=== PATIENT | male | born 1960 | race Caucasian/White ===

== ENCOUNTER 2019-05-15 19:57 | Inpatient (IN) ==
[2019-05-15 20:31] LABS: Basophils # (auto) 0.02 K/uL (0-0.2); Basophils % (auto) 0.3 %; Eosinophils # (auto) 0.14 K/uL (0-0.5); Hemoglobin 16.8 g/dL (14.0-18.0); Immature Granulocytes # (auto) 0.02 K/uL (0.00-0.02); Immature Granulocytes % (auto) 0.3 %; Lymphocytes % (auto) 47.9 %; Mean Corpuscular Hemoglobin 33.1 pg (25-34); Mean Corpuscular Hgb Conc 35.7 g/dL (32-36); Mean Corpuscular Volume 92.5 fL (80-100); Mean Platelet Volume 10.6 fL (7.4-10.4); Monocytes # (auto) 0.31 K/uL (0.11-0.59); Monocytes % (auto) 4.5 %; Platelet Count 189 K/uL (130-400); RDW Coefficient of Variation 12.3 % (11.5-14.5); RDW Standard Deviation 41.8 fL (36.4-46.3); Red Blood Count 5.08 M/uL (4.7-6.1); White Blood Count 6.89 K/uL (4.8-10.8)
--- NOTE | 2019-05-15 21:18 | XRay Report ---
XR chest 1V portable HISTORY: Atypical Chest Pain COMPARISON: None. FINDINGS: There are low lung volumes. No focal lung consolidations to suggest pneumonia. The heart is mildly enlarged. There are poststernotomy changes. There is mild central pulmonary vascular congesti on without overt edema. No pleural effusions. No pneumothorax. IMPRESSION: Cardiomegaly with mild central pulmonary vascular congestion. ACT 112: Negative or not required by law. Electronically signed by: Italo Bedoya M.D. 05/15/2019 9:17 PM
[2019-05-15 21:32] LABS: Alanine Aminotransferase 63 U/L (12-78); Albumin Globulin Ratio 0.7 (0.9-2); Albumin Level 3.8 gm/dl (3.4-5.0); Alkaline Phosphatase 58 U/L (45-117); Bilirubin,Total 0.3 mg/dl (0.2-1); Blood Urea Nitrogen 10 mg/dl (7-18); Carbon Dioxide 19 mmol/L (21-32); Chloride 103 mmol/L (98-107); Est GFR (African American) 111.6; Est GFR (Non-African American) 96.3; Globulin 5.1 gm/dl (2.5-4.0); Glucose 245 mg/dl (70-99); Lipase 126 U/L (73-393); Sodium 135 mmol/L (136-145); Total Protein 8.9 gm/dl (6.4-8.2); Troponin I < 0.015 ng/ml (0-0.045)
[2019-05-15 21:38] LABS: D Dimer 200 ug/L FEU (0-500); Partial Thromboplastin Ratio 0.9; Partial Thromboplastin Time 23.1 Seconds (21.0-31.0); Prothrombin Time 10.4 Seconds (9.0-12.0)
[2019-05-15] MEDS ORDERED: ALUMINUM/MAGNESIUM SUSP 30 ML UDC PO STA (22:12)
[2019-05-15 22:22] LABS: Appearance Urine Clear (Clear); Bilirubin Urine Negative (Negative); Blood Urine Negative (Negative); Color Urine Yellow; Glucose Urine UA 3+ (Negative); Ketones Urine Negative (Negative); Leukocyte Esterase Urine Negative (Negative); Nitrite Urine Negative (Negative); Protein Urine Negative (Negative); Urobilinogen Urine Negative (Negative)
[2019-05-15] MEDS ORDERED: OPTIRAY 320 125ml IV PRN (22:54)
[2019-05-16] MEDS ORDERED: METOPROLOL TARTRATE 25 MG TAB PO STA (01:06)
[2019-05-16 01:11] LABS: BUN Creatinine Ratio 13.3 (10-20); Blood Urea Nitrogen 7 mg/dl (7-18); Calcium 6.2 mg/dl (8.5-10.1); Carbon Dioxide 19 mmol/L (21-32); Chloride 113 mmol/L (98-107); Est GFR (African American) 137.5; Est GFR (Non-African American) 118.6; Glucose 187 mg/dl (70-99); Potassium 3.1 mmol/L (3.5-5.1); Sodium 143 mmol/L (136-145)
[2019-05-16 01:23] LABS: Magnesium 1.6 mg/dl (1.8-2.4); Thyroid Stimulating Hormone 0.752 uIu/ml (0.300-4.500); Troponin I < 0.015 ng/ml (0-0.045)
[2019-05-16] MEDS ORDERED: MAGNESIUM SULFATE / D5W 1 GM/100 ML BAG IV ONE (01:39)
[2019-05-16] MEDS ORDERED: POTASSIUM CHLORIDE 10 MEQ TABCR PO STA (01:39)
--- NOTE | 2019-05-16 01:45 | Emergency Department Note ---
Entered by Nupur Pena acting as a scribe for History of Present Illness General Chief complaint: Chest Pain Stated complaint: CHEST PAIN Time Seen by Provider: 05/15/19 20:09 Source: patient and family History of Present Illness Onset (ago): hour(s) less than 1 Location: chest Severity: similar to prior episodes Pain Consistency: + constant Quality: + aching Relieved By: + none Exacerbated By: + none Associated symptoms: + denies other symptoms (denies sore throat) and + headaches; no diaphoresis and no fever/chills Treatments prior to arrival: none The patient is a 58 year old male who presents to the Emergency Room with complaints of chest pain and shortness of breath that started today. The patient states that he passed out and fell on the kitchen floor. He reports that he was drinking beer today, and had about 8 glasses. He complains of chest pain. The patient has a cardiac history. He called his daughter and told her that he needed to go to the hospital. He notes that his symptoms felt similar to his past heart attack. He denies diaphoresis, fever, and sore throat. The patient is not on any blood thinners. He has a history of diabetes and has been taking his medication. He has a history of a triple bypass, as well as cardiac stent melissa cement. The patient also complains of general aches and headache. The patient states that he does not drink every day. He currently does not have any chest pain, and was feeling okay prior to the episode. Home Medications Home Medications Medication Instructions Recorded Confirmed Type aspirin [Aspir-81] 81 mg PO QAM 05/15/19 05/15/19 History lisinopril-hydrochlorothiazide 1 tab PO QAM 05/15/19 05/15/19 History metformin 500 mg PO BID 05/15/19 05/15/19 History metoprolol tartrate [Lopressor] 75 mg PO BID 05/15/19 05/15/19 History simvastatin 40 mg PO QAM 05/15/19 05/15/19 History Allergies Allergy/AdvReac Type Severity Reaction Status Date / Time No Known Allergies Allergy Verified 05/15/19 20:28 Past Med/Surg History Medical History Diabetes Surgical History Hx of heart artery stent S/P triple vessel bypass Social History Feels Safe at Home: Yes Smoking Status: Former smoker Review of Systems See HPI for pertinent positives & negatives. and A total of 10 systems reviewed and were otherwise negative Physical Exam Vital Signs Vital Signs - 24 hr 05/15/19 20:06 05/15/19 20:08 05/15/19 20:11 Temperature 37.0 C Temperature Source Oral Pulse Rate 112 H 109 H 110 H Pulse Rate [Finger] 109 H Pulse Rate from SpO2 Sensor 112 H 108 H Respiratory Rate 23 14 19 Respiratory Effort / Characteristics Respiratory Depth Blood Pressure 176/111 H 176/111 H Blood Pressure [Right Arm] 176/111 H Blood Pressure Mean 127 132 Blood Pressure Mean [Right Arm] 132 Pulse Oximetry 95 95 95 Oxygen Delivery Method Nasal Cannula Nasal Cannula Nasal Cannula Oxygen Flow Rate 2 2 2 Sepsis Recent Fever Within 48 Hours No Sepsis New/Unexplained Change in Mental Status No Sepsis Action Taken by Nursing No Action Required 05/15/19 20:20 05/15/19 20:30 05/15/19 20:31 Temperature Temperature Source Pulse Rate 109 H 115 H 118 H Pulse Rate [Finger] Pulse Rate from SpO2 Sensor 110 H 109 H 119 H Respiratory Rate 26 H 22 21 Respiratory Effort / Characteristics Respiratory Depth Blood Pressure 121/87 Blood Pressure [Right Arm] Blood Pressure Mean 107 Blood Pressure Mean [Right Arm] Pulse Oximetry 91 94 Oxygen Delivery Method Nasal Cannula Nasal Cannula Nasal Cannula Oxygen Flow Rate 2 2 2 Sepsis Recent Fever Within 48 Hours Sepsis New/Unexplained Change in Mental Status Sepsis Action Taken by Nursing 05/15/19 20:40 05/15/19 20:50 05/15/19 21:00 Temperature Temperature Source Pulse Rate 112 H 107 H 114 H Pulse Rate [Finger] Pulse Rate from SpO2 Sensor 111 H 106 H Respiratory Rate 17 18 14 Respiratory Effort / Characteristics Respiratory Depth Blood Pressure Blood Pressure [Right Arm] Blood Pressure Mean Blood Pressure Mean [Right Arm] Pulse Oximetry 94 93 Oxygen Delivery Method Nasal Cannula Nasal Cannula Nasal Cannula Oxygen Flow Rate 2 2 2 Sepsis Recent Fever Within 48 Hours Sepsis New/Unexplained Change in Mental Status Sepsis Action Taken by Nursing 05/15/19 21:01 05/15/19 21:10 05/15/19 21:20 Temperature Temperature Source Pulse Rate 112 H 108 H 111 H Pulse Rate [Finger] Pulse Rate from SpO2 Sensor 113 H 106 H 110 H Respiratory Rate 22 21 21 Respiratory Effort / Characteristics Respiratory Depth Blood Pressure 116/73 Blood Pressure [Right Arm] Blood Pressure Mean 76 Blood Pressure Mean [Right Arm] Pulse Oximetry 94 95 94 Oxygen Delivery Method Nasal Cannula Nasal Cannula Nasal Cannula Oxygen Flow Rate 2 2 2 Sepsis Recent Fever Within 48 Hours Sepsis New/Unexplained Change in Mental Status Sepsis Action Taken by Nursing 05/15/19 21:21 05/15/19 21:22 05/15/19 21:30 Temperature Temperature Source Pulse Rate 113 H 108 H Pulse Rate [Finger] 103 H Pulse Rate from SpO2 Sensor 114 H 109 H Respiratory Rate 20 23 20 Respiratory Effort / Characteristics Non-Labored Respiratory Depth Normal Blood Pressure 126/77 Blood Pressure [Right Arm] 126/77 Blood Pressure Mean 100 Blood Pressure Mean [Right Arm] 93 Pulse Oximetry 94 93 93 Oxygen Delivery Method Nasal Cannula Nasal Cannula Nasal Cannula Oxygen Flow Rate 2 2 2 Sepsis Recent Fever Within 48 Hours Sepsis New/Unexplained Change in Mental Status Sepsis Action Taken by Nursing 05/15/19 21:40 05/15/19 21:50 05/15/19 22:00 Temperature Temperature Source Pulse Rate 109 H 102 H 103 H Pulse Rate [Finger] Pulse Rate from SpO2 Sensor 105 H 104 H 104 H Respiratory Rate 32 H 21 18 Respiratory Effort / Characteristics Respiratory Depth Blood Pressure Blood Pressure [Right Arm] Blood Pressure Mean Blood Pressure Mean [Right Arm] Pulse Oximetry 94 93 94 Oxygen Delivery Method Nasal Cannula Nasal Cannula Nasal Cannula Oxygen Flow Rate 2 2 2 Sepsis Recent Fever Within 48 Hours Sepsis New/Unexplained Change in Mental Status Sepsis Action Taken by Nursing 05/15/19 22:10 05/15/19 22:20 05/15/19 22:30 Temperature Temperature Source Pulse Rate Pulse Rate [Finger] Pulse Rate from SpO2 Sensor 112 H 98 H Respiratory Rate 23 20 23 Respiratory Effort / Characteristics Respiratory Depth Blood Pressure 164/150 H Blood Pressure [Right Arm] Blood Pressure Mean 151 Blood Pressure Mean [Right Arm] Pulse Oximetry 95 93 Oxygen Delivery Method Nasal Cannula Nasal Cannula Nasal Cannula Oxygen Flow Rate 2 2 2 Sepsis Recent Fever Within 48 Hours Sepsis New/Unexplained Change in Mental Status Sepsis Action Taken by Nursing 05/15/19 22:40 05/15/19 23:36 05/15/19 23:40 Temperature Temperature Source Pulse Rate Pulse Rate [Finger] Pulse Rate from SpO2 Sensor 93 H 95 H 90 Respiratory Rate 22 32 H Respiratory Effort / Characteristics Respiratory Depth Blood Pressure Blood Pressure [Right Arm] Blood Pressure Mean Blood Pressure Mean [Right Arm] Pulse Oximetry 95 92 Oxygen Delivery Method Nasal Cannula Nasal Cannula Nasal Cannula Oxygen Flow Rate 2 2 2 Sepsis Recent Fever Within 48 Hours Sepsis New/Unexplained Change in Mental Status Sepsis Action Taken by Nursing 05/15/19 23:45 05/15/19 23:50 05/16/19 00:00 Temperature Temperature Source Pulse Rate 105 H 102 H Pulse Rate [Finger] 101 H Pulse Rate from SpO2 Sensor 104 H 95 H Respiratory Rate 20 21 14 Respiratory Effort / Characteristics Respiratory Depth Blood Pressure Blood Pressure [Right Arm] Blood Pressure Mean Blood Pressure Mean [Right Arm] Pulse Oximetry 92 92 94 Oxygen Delivery Method Room Air Nasal Cannula Room Air Oxygen Flow Rate 2 Sepsis Recent Fever Within 48 Hours Sepsis New/Unexplained Change in Mental Status Sepsis Action Taken by Nursing 05/16/19 00:01 05/16/19 00:10 05/16/19 00:20 Temperature Temperature Source Pulse Rate 96 H 97 H 97 H Pulse Rate [Finger] Pulse Rate from SpO2 Sensor 97 H 103 H 97 H Respiratory Rate 17 21 24 Respiratory Effort / Characteristics Respiratory Depth Blood Pressure Blood Pressure [Right Arm] Blood Pressure Mean Blood Pressure Mean [Right Arm] Pulse Oximetry 92 91 91 Oxygen Delivery Method Room Air Room Air Room Air Oxygen Flow Rate Sepsis Recent Fever Within 48 Hours Sepsis New/Unexplained Change in Mental Status Sepsis Action Taken by Nursing 05/16/19 00:30 05/16/19 00:31 05/16/19 00:40 Temperature Temperature Source Pulse Rate 105 H 100 H 95 H Pulse Rate [Finger] Pulse Rate from SpO2 Sensor 95 H 99 H 96 H Respiratory Rate 18 23 25 H Respiratory Effort / Characteristics Respiratory Depth Blood Pressure 163/98 H Blood Pressure [Right Arm] Blood Pressure Mean 108 Blood Pressure Mean [Right Arm] Pulse Oximetry 91 91 91 Oxygen Delivery Method Room Air Room Air Room Air Oxygen Flow Rate Sepsis Recent Fever Within 48 Hours Sepsis New/Unexplained Change in Mental Status Sepsis Action Taken by Nursing 05/16/19 00:50 Temperature Temperature Source Pulse Rate 102 H Pulse Rate [Finger] Pulse Rate from SpO2 Sensor 104 H Respiratory Rate 22 Respiratory Effort / Characteristics Respiratory Depth Blood Pressure Blood Pressure [Right Arm] Blood Pressure Mean Blood Pressure Mean [Right Arm] Pulse Oximetry 93 Oxygen Delivery Method Room Air Oxygen Flow Rate Sepsis Recent Fever Within 48 Hours Sepsis New/Unexplained Change in Mental Status Sepsis Action Taken by Nursing General: Moderately intoxicated middle-aged male in no acute distress. Complains he does not feel well. HEENT: Normal cephalic atraumatic. Pupils are equal round and reactive to light. Extraocular movements are intact. Oropharynx is pink with moist mucous membranes. No swelling of the mouth lips or tongue. Neck: Supple with a midline trachea. No meningeal signs or stiffness, no JVD or bruits. No Stridor. Chest: Clear to auscultation bilaterally. No wheezes or rhonchi. No increased work of breathing. Heart: regular rate and rhythm. Abdomen: Soft nontender, nondistended without rebound guarding or rigidity. Extremities: No cyanosis clubbing or edema. No calf tenderness or asymmetry Spine/Back. Small abrasion to right posterior thoracic area. Non tender to palpation. No CVA tenderness Skin: Good turgor without rashes. Neurologic exam: Cranial nerves two through 12 are intact. Motor and sensation are intact and symmetrical throughout. Procedures Free Text Procedures Emergency department observation Family history: Cardiac disease This patient was observed in the emergency department using our heart pathway. This was done to further evaluate him from a cardiac standpoint. He was placed in observation at 2034 on 05/15/19 and was observed through 100 a.m. on 05/16/19. His EKGs appear unchanged from each other. His troponins were both negative. Despite this given his significant cardiac history it was deemed that he should be observed further in the hospital Course Course 2010: Past medical records reviewed. The patient was evaluated in room B02. A complete history and physical exam was performed. 2046: The patient complained of a twinge of chest pain that felt like a spasm. He is now having no pain, and repeat EKG shows no change. 2205: I rechecked on the patient. He has been having intermittent pain in his epigastric area. I ordered a chest abdominal CT for him. The patients blood alcohol is elevated, but the patient denies being intoxicated. 104: I rechecked on the patient, who seems to be doing better. Dr. Guaman has been paged for patient observation. 0125: I spoke to Dr. Guaman, [facility] hospitalist, who agreed to further evaluate the patient. The patient understands and is agreeable to this. Administered Medications Ioversol (Optiray 320 125ml) 125 ml IV ONCE PRN PRN Reason: Interaction Checking Stop: 05/19/19 22:53 Last Admin: 05/15/19 22:55 Dose: 120 ml Documented by: [id number] Discontinued Medications Al Hydrox/Mg Hydrox/Simethicone (Maalox) 30 ml PO NOW STA Stop: 05/15/19 22:13 Last Admin: 05/15/19 22:47 Dose: 30 ml Documented by: [id number] Metoprolol Tartrate (Lopressor) 25 mg PO NOW STA Stop: 05/16/19 01:07 Last Admin: 05/16/19 01:35 Dose: 25 mg Documented by: [id number] Medical Decision Making Differential Diagnosis Differential diagnosis includes: acute coronary syndrome, PE, arrhythmia, syncope, alcohol intoxication, electrolyte or metabolic abnormalities, among others were considered. Medical Records Attestation: I reviewed the patient's medical records. Home Medications Current Medication List: was personally reviewed by me Laboratory Data Attestation: I reviewed the patient's lab results. Result diagrams: 05/15/19 20:11 05/16/19 00:35 Lab Results 05/15/19 05/15/19 05/15/19 Range/Units 20:11 20:11 20:35 WBC 6.89 (4.8-10.8) K/uL RBC 5.08 (4.7-6.1) M/uL Hgb 16.8 (14.0-18.0) g/dL Hct 47.0 (42-52) % MCV 92.5 (80-100) fL MCH 33.1 (25-34) pg MCHC 35.7 (32-36) g/dL RDW Std Deviation 41.8 (36.4-46.3) fL RDW Coeff of Vanesa 12.3 (11.5-14.5) % Plt Count 189 (130-400) K/uL MPV 10.6 H (7.4-10.4) fL Immature Gran % (Auto) 0.3 % Neut % (Auto) 45.0 % Lymph % (Auto) 47.9 % Kimble % (Auto) 4.5 % Eos % (Auto) 2.0 % Baso % (Auto) 0.3 % Immature Gran # (Auto) 0.02 (0.00-0.02) K/uL Neut # (Auto) 3.10 (1.4-6.5) K/uL Lymph # (Auto) 3.30 (1.2-3.4) K/uL Kimble # (Auto) 0.31 (0.11-0.59) K/uL Eos # (Auto) 0.14 (0-0.5) K/uL Baso # (Auto) 0.02 (0-0.2) K/uL PT Cancelled INR Cancelled APTT Cancelled PTT Ratio Cancelled D-Dimer Cancelled Sodium 135 L (136-145) mmol/L Potassium (3.5-5.1) mmol/L Chloride 103 (98-107) mmol/L Carbon Dioxide 19 L (21-32) mmol/L Anion Gap 13.0 H (3-11) BUN 10 (7-18) mg/dl Creatinine 0.83 (0.6-1.4) mg/dl Est Cr Clr Drug Dosing 103.0 ml/min Est GFR ( Amer) 111.6 Est GFR (Non-Af Amer) 96.3 BUN/Creatinine Ratio 12.0 (10-20) Glucose 245 H (70-99) mg/dl Calcium 9.0 (8.5-10.1) mg/dl Magnesium (1.8-2.4) mg/dl Total Bilirubin 0.3 (0.2-1) mg/dl AST (15-37) U/L ALT 63 (12-78) U/L Alkaline Phosphatase 58 (45-117) U/L Troponin I < 0.015 (0-0.045) ng/ml Total Protein 8.9 H (6.4-8.2) gm/dl Albumin 3.8 (3.4-5.0) gm/dl Globulin 5.1 H (2.5-4.0) gm/dl Albumin/Globulin Ratio 0.7 L (0.9-2) Lipase 126 (73-393) U/L TSH (0.300-4.500) uIu/ml Urine Color Urine Appearance (Clear) Urine pH (4.5-7.5) Ur Specific [place] (1.000-1.030) Urine Protein (Negative) Urine Glucose (UA) (Negative) Urine Ketones (Negative) Urine Blood (Negative) Urine Nitrite (Negative) Urine Bilirubin (Negative) Urine Urobilinogen (Negative) Ur Leukocyte Esterase (Negative) Ethyl Alcohol mg/dL (0-3) mg/dl 05/15/19 05/15/19 05/15/19 Range/Units 20:35 21:15 22:15 WBC (4.8-10.8) K/uL RBC (4.7-6.1) M/uL Hgb (14.0-18.0) g/dL Hct (42-52) % MCV (80-100) fL MCH (25-34) pg MCHC (32-36) g/dL RDW Std Deviation (36.4-46.3) fL RDW Coeff of Vanesa (11.5-14.5) % Plt Count (130-400) K/uL MPV (7.4-10.4) fL Immature Gran % (Auto) % Neut % (Auto) % Lymph % (Auto) % Kimble % (Auto) % Eos % (Auto) % Baso % (Auto) % Immature Gran # (Auto) (0.00-0.02) K/uL Neut # (Auto) (1.4-6.5) K/uL Lymph # (Auto) (1.2-3.4) K/uL Kimble # (Auto) (0.11-0.59) K/uL Eos # (Auto) (0-0.5) K/uL Baso # (Auto) (0-0.2) K/uL PT 10.4 INR 1.0 APTT 23.1 PTT Ratio 0.9 D-Dimer 200 Sodium (136-145) mmol/L Potassium (3.5-5.1) mmol/L Chloride (98-107) mmol/L Carbon Dioxide (21-32) mmol/L Anion Gap (3-11) BUN (7-18) mg/dl Creatinine (0.6-1.4) mg/dl Est Cr Clr Drug Dosing ml/min Est GFR ( Amer) Est GFR (Non-Af Amer) BUN/Creatinine Ratio (10-20) Glucose (70-99) mg/dl Calcium (8.5-10.1) mg/dl Magnesium (1.8-2.4) mg/dl Total Bilirubin (0.2-1) mg/dl AST (15-37) U/L ALT (12-78) U/L Alkaline Phosphatase (45-117) U/L Troponin I (0-0.045) ng/ml Total Protein (6.4-8.2) gm/dl Albumin (3.4-5.0) gm/dl Globulin (2.5-4.0) gm/dl Albumin/Globulin Ratio (0.9-2) Lipase (73-393) U/L TSH (0.300-4.500) uIu/ml Urine Color Yellow Urine Appearance Clear (Clear) Urine pH 5.0 (4.5-7.5) Ur Specific [place] 1.010 (1.000-1.030) Urine Protein Negative (Negative) Urine Glucose (UA) 3+ H (Negative) Urine Ketones Negative (Negative) Urine Blood Negative (Negative) Urine Nitrite Negative (Negative) Urine Bilirubin Negative (Negative) Urine Urobilinogen Negative (Negative) Ur Leukocyte Esterase Negative (Negative) Ethyl Alcohol mg/dL 241.0 H (0-3) mg/dl 05/16/19 Range/Units 00:35 WBC (4.8-10.8) K/uL RBC (4.7-6.1) M/uL Hgb (14.0-18.0) g/dL Hct (42-52) % MCV (80-100) fL MCH (25-34) pg MCHC (32-36) g/dL RDW Std Deviation (36.4-46.3) fL RDW Coeff of Vanesa (11.5-14.5) % Plt Count (130-400) K/uL MPV (7.4-10.4) fL Immature Gran % (Auto) % Neut % (Auto) % Lymph % (Auto) % Kimble % (Auto) % Eos % (Auto) % Baso % (Auto) % Immature Gran # (Auto) (0.00-0.02) K/uL Neut # (Auto) (1.4-6.5) K/uL Lymph # (Auto) (1.2-3.4) K/uL Kimble # (Auto) (0.11-0.59) K/uL Eos # (Auto) (0-0.5) K/uL Baso # (Auto) (0-0.2) K/uL PT INR APTT PTT Ratio D-Dimer Sodium 143 D (136-145) mmol/L Potassium 3.1 L (3.5-5.1) mmol/L Chloride 113 H (98-107) mmol/L Carbon Dioxide 19 L (21-32) mmol/L Anion Gap 11.0 (3-11) BUN 7 (7-18) mg/dl Creatinine 0.50 L D (0.6-1.4) mg/dl Est Cr Clr Drug Dosing 171.0 ml/min Est GFR ( Amer) 137.5 Est GFR (Non-Af Amer) 118.6 BUN/Creatinine Ratio 13.3 (10-20) Glucose 187 H (70-99) mg/dl Calcium 6.2 L D (8.5-10.1) mg/dl Magnesium 1.6 L (1.8-2.4) mg/dl Total Bilirubin (0.2-1) mg/dl AST (15-37) U/L ALT (12-78) U/L Alkaline Phosphatase (45-117) U/L Troponin I < 0.015 (0-0.045) ng/ml Total Protein (6.4-8.2) gm/dl Albumin (3.4-5.0) gm/dl Globulin (2.5-4.0) gm/dl Albumin/Globulin Ratio (0.9-2) Lipase (73-393) U/L TSH 0.752 (0.300-4.500) uIu/ml Urine Color Urine Appearance (Clear) Urine pH (4.5-7.5) Ur Specific [place] (1.000-1.030) Urine Protein (Negative) Urine Glucose (UA) (Negative) Urine Ketones (Negative) Urine Blood (Negative) Urine Nitrite (Negative) Urine Bilirubin (Negative) Urine Urobilinogen (Negative) Ur Leukocyte Esterase (Negative) Ethyl Alcohol mg/dL (0-3) mg/dl Imaging Data Radiologist's Impression: Radiology results as stated below per my review and the radiologist's interpretation: XR chest 1V portable HISTORY: Atypical Chest Pain COMPARISON: None. FINDINGS: There are low lung volumes. No focal lung consolidations to suggest pneumonia. The heart is mildly enlarged. There are poststernotomy changes. There is mild central pulmonary vascular congestion without overt edema. No pleural effusions. No pneumothorax. IMPRESSION: Cardiomegaly with mild central pulmonary vascular congestion. ACT 112: Negative or not required by law. Electronically signed by: Italo Bedoya M.D. 05/15/2019 9:17 PM CTA ABDOMEN & PELVIS With Contrast Moderate atherosclerosis of the aorta and iliac arteries. No aortic aneurysm or dissection. Hepatic steatosis. Nonenhancing cyst in the mid right kidney is probably benign. No hydronephrosis or nephrolithiasis. Diverticulosis without diverticulitis. Normal appendix. No free air or free fluid. CTA CHEST No aortic aneurysm or dissection. Evaluation for pulmonary emboli in the distal branches are limited due to motion artifact and suboptimal opacification. Streak artifact also limits evaluation of the right upper lobe branches. No definite evidence of pulmonary emboli. Scattered subpleural nodules measuring up to 10 mm in the lingula are indeterminant. Recommend correlation previous studies and risk factors and consider follow-up. Mild curvilinear groundglass in the dependent portions of both lungs probably represents atelectasis. Mildly enlarged lymph nodes in the bilateral hilar regions are indeterminant. Status post sternotomy and CABG. Diffuse coronary artery calcifications. Radiologist: Bala Salcido MD ECG Data Attestation: I personally reviewed and interpreted this ECG as follows: Indication: + chest pain Rate (beats per minute): 114 Rhythm: + sinus tachycardia ECG Intervals/blocks: + Normal QT ECG ST segments: + T-wave inversions (Lateral); no ST depression and no ST elevation Additional Comments: 2nd EKG: Sinus tachycardia, rate of 108. Non-specific T wave abnormalities. Unchanged compared to EKG 1 Blood Pressure Blood Pressure Findings: Elevated blood pressure Blood Pressure Disposition: Referred to patients primary care provider MDM Narrative Continuous Cardiac Monitoring: An order was placed for continuous cardiac monitoring. The monitor shows a rate of 114 with sinu tachycardia This patient comes in as scribed above. He was placed on a director of cardiac rehabilitation in room B2. he is complaining of syncope at home. he says he just does not feel well. He is also had some chest pain and pain in his abdomen. He does have a significant cardiac history and has also been drinking tonight which makes him a little bit difficult evaluate. He was placed on a director of cardiac rehabilitation. he was found to have some sinus tachycardia he does have some T wave abnormalities. Unfortunately, I do not have the old EKGs here for comparison. He has no ST segment elevation. Extensive work-up was obtained. His initial troponin was negative. I did do a follow-up EKG and there is no change compared to the first. Chest x-ray was unremarkable. He does have some mild electrolyte abnormalities with a low potassium and magnesium. These were repleted with IV magnesium. He was also given p.o. potassium. I did do a CAT scan with a CTA of the chest and abdomen. There is no aortic dissection and there is no definite PE, he has a normal d-dimer as well. I think he likely has a PE and there is no acute intra-abdominal process. His blood alcohol did come back over 200. Alcohol intoxication is playing a factor here however he does have a significant cardiac history with multiple stents and bypass. Given that he had syncope, I do think he should be observed further in the hospital to further rule out cardiac events. He seems to doing much better. I did give him Maalox at one point and that seemed to help his chest pain better but he was still having some mild abdominal discomfort. Given his drinking this could be more related to a GI issue such as esophagitis or ulcers. He is not been vomiting and has had no blood in his stool. I have consulted Dr. Garzon to see him in the ER for further treatment and evaluation. Impression & Plan Syncope, Chest pain, Alcohol intoxication, Acute epigastric pain, Hypokalemia, Hypomagnesemia Discharge Plan Visit Data Chief Complaint: Chest Pain Stated Complaint: CHEST PAIN ED Provider: Miki Rico Discharge Problem: Syncope, Chest pain, Alcohol intoxication, Acute epigastric pain, Hypokalemia, Hypomagnesemia Forms Stand Alone Forms: My [facility] Prescriptions Prescriptions: No Action metformin 500 mg Tablet 500 mg PO BID RF: 0 aspirin [Aspir-81] 81 mg Tablet,Delayed Release (Dr/Ec) 81 mg PO QAM RF: 0 simvastatin 40 mg Tablet 40 mg PO QAM RF: 0 metoprolol tartrate [Lopressor] 50 mg Tablet 75 mg PO BID RF: 0 lisinopril-hydrochlorothiazide 20-25 mg Tablet 1 tab PO QAM RF: 0 Discharge Problem: Syncope Qualifiers: Syncope type: unspecified Qualified Code(s): R55 - Syncope and collapse Chest pain Qualifiers: Chest pain type: unspecified Qualified Code(s): R07.9 - Chest pain, unspecified Alcohol intoxication Qualifiers: Complication of substance-induced condition: uncomplicated Qualified Code(s): F10.920 - Alcohol use, unspecified with intoxication, uncomplicated The scribe's documentation has been prepared under my direction and personally reviewed by me in its entirety. I confirm that the note above accurately reflects all work, treatment, procedures, and medical decision making performed by me.
[2019-05-16] MEDS ORDERED: NITROGLYCERIN SL 0.4 MG/TAB TAB SL STA (01:52)
[2019-05-16] MEDS ORDERED: MoRPHine SULFATE 2 MG/ML CARP IV STA (01:53)
[2019-05-16] MEDS ORDERED: INSULIN GLARGINE SOLOSTAR 100 UNITS/ML 3 ML PEN SC STA ×2 (01:54→05:18)
--- NOTE | 2019-05-16 02:09 | History & Physical Report ---
Date of Service May 16, 2019 Assessment & Plan (1) Chest pain: Possibly from uncontrolled HTN Rule out ACS hx CAD status post CABG status post stent hyperlipidemia on statin Rx, recent lipid profile drawn outpatient (serum cholesterol 187, triglycerides 407, HDL 23, LDL 99) DM 2 on oral medications, suboptimal control as of recent outpatient hemoglobin A1c of 9.7 April, Hypokalemia secondary to home diuretic Rx past tobacco abuse PCU Titrate home BP meds Continue home aspirin for secondary CAD prevention TTE, Cardiology consult RE chest pain Basal insulin, ISS BG goal [id number], carb count coverage, Diabetic education Replace electrolytes, hold home diuretic for now DVT prophylaxis per Lovenox subcu Full code History of Present Illness Chief Complaint: Passed out , chest pain Primary Care Provider: Roman Hooker MD History obtained from patient, family, and records. Medical history significant for CAD status post CABG status post stent, hypertension, hyperlipidemia, DM 2 on oral medications, past tobacco abuse. Patient has not seen a inspector clip on sunglasses for more than 10 years because he did not like his [employer] specialist. Intermittent chest pain, about weekly symptoms, usually with exertion, usually relieved with rest for some time now. SBP 130s on last recheck at PCPs office a few days ago. Some stress over the last few months from worrying about patient's sister's breast cancer recurrence. Patient not feeling well yesterday although appetite okay. Drinking alcohol yesterday about not habitual and heavy as per patient/family. He called his daughter a few hours ago feeling like he was given a pass out. Sinus headache symptoms as per patient. Patient found by daughter unconscious but arousable. Patient woke up with sharp substernal pain as if somebody was standing on his chest similar to his first heart attack. Some improvement with nitroglycerin administration at the ER. 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 Allergies Allergy/AdvReac Type Severity Reaction Status Date / Time No Known Allergies Allergy Verified 05/15/19 20:28 Home Medications Home Medications Medication Instructions Recorded Confirmed Type aspirin [Aspir-81] 81 mg PO QAM 05/15/19 05/15/19 History lisinopril-hydrochlorothiazide 1 tab PO QAM 05/15/19 05/15/19 History metformin 500 mg PO BID 05/15/19 05/15/19 History metoprolol tartrate [Lopressor] 75 mg PO BID 05/15/19 05/15/19 History simvastatin 40 mg PO QAM 05/15/19 05/15/19 History Past Med/Surg History Medical History Diabetes Surgical History Hx of heart artery stent S/P triple vessel bypass Social History Preferred Language: Montserratian Communication Ability: Effective Audio Director Required: No Beliefs That Will Affect Care: None Current Living Situation: Spouse Other Information That Helps Us Care for You: No Feels Safe at Home: Yes Safety Concerns: Feels Safe At This Time Smoking Status: Never smoker Do You Dip or Chew Tobacco: No ; Second Hand Exposure: No ; Tobacco Cessation Education Requested by Patient: No Hx Alcohol Use: Yes Alcohol type: beer Hx Substance Use: No Review of Systems Review of Systems: As per HPI, all 10 systems reviewed, all other ROS negative Physical Exam Physical Exam: GENERAL: Comfortable, pleasant, obese, alcoholic fetor, no respiratory distress SKIN: Normal color, warm HEENT: Partial alopecia, bespectacled, pink palpebral conjunctivae, no ptosis, dry buccal mucosa NECK : Supple, short neck, no tenderness CHEST : CTA, no tenderness HEART : Tachycardic, no obvious murmurs ABDOMEN: Some distention, nontender EXTREMITIES : No LE swelling/tenderness, no other conspicuous deformities noted NEUROLOGIC : Coherent, no facial asymmetry, no other gross focality Results & Data Vital Signs (Past 12 Hours) Vital Signs Temp Pulse Pulse Resp BP BP Pulse Ox 05/16/19 00:50 102 H 22 93 05/16/19 00:40 95 H 25 H 91 05/16/19 00:31 100 H 23 163/98 H 91 05/16/19 00:30 105 H 18 91 05/16/19 00:20 97 H 24 91 05/16/19 00:10 97 H 21 91 05/16/19 00:01 96 H 17 92 05/16/19 00:00 102 H 14 94 05/15/19 23:50 105 H 21 92 05/15/19 23:45 101 H 20 92 05/15/19 23:40 32 H 05/15/19 23:36 92 05/15/19 22:40 22 95 05/15/19 22:30 23 164/150 H 93 05/15/19 22:20 20 05/15/19 22:10 23 95 05/15/19 22:00 103 H 18 94 05/15/19 21:50 102 H 21 93 05/15/19 21:40 109 H 32 H 94 05/15/19 21:30 108 H 20 93 05/15/19 21:22 113 H 23 126/77 93 05/15/19 21:21 103 H 20 126/77 94 05/15/19 21:20 111 H 21 94 05/15/19 21:10 108 H 21 95 05/15/19 21:01 112 H 22 116/73 94 05/15/19 21:00 114 H 14 05/15/19 20:50 107 H 18 93 05/15/19 20:40 112 H 17 94 05/15/19 20:31 118 H 21 121/87 94 05/15/19 20:30 115 H 22 05/15/19 20:20 109 H 26 H 91 05/15/19 20:11 110 H 19 95 05/15/19 20:08 37.0 C 109 H 109 H 14 176/111 H 176/111 H 95 05/15/19 20:06 112 H 23 176/111 H 95 Laboratory Results Laboratory Results WBC 6.89 K/uL (4.8-10.8) 05/15/19 20:11 RBC 5.08 M/uL (4.7-6.1) 05/15/19 20:11 Hgb 16.8 g/dL (14.0-18.0) 05/15/19 20:11 Hct 47.0 % (42-52) 05/15/19 20:11 MCV 92.5 fL (80-100) 05/15/19 20:11 MCH 33.1 pg (25-34) 05/15/19 20:11 MCHC 35.7 g/dL (32-36) 05/15/19 20:11 RDW Std Deviation 41.8 fL (36.4-46.3) 05/15/19 20:11 RDW Coeff of Vanesa 12.3 % (11.5-14.5) 05/15/19 20:11 Plt Count 189 K/uL (130-400) 05/15/19 20:11 MPV 10.6 fL (7.4-10.4) H 05/15/19 20:11 Immature Gran % (Auto) 0.3 % 05/15/19 20:11 Neut % (Auto) 45.0 % 05/15/19 20:11 Lymph % (Auto) 47.9 % 05/15/19 20:11 Dawson % (Auto) 4.5 % 05/15/19 20:11 Eos % (Auto) 2.0 % 05/15/19 20:11 Baso % (Auto) 0.3 % 05/15/19 20:11 Immature Gran # (Auto) 0.02 K/uL (0.00-0.02) 05/15/19 20:11 Neut # (Auto) 3.10 K/uL (1.4-6.5) 05/15/19 20:11 Lymph # (Auto) 3.30 K/uL (1.2-3.4) 05/15/19 20:11 Dawson # (Auto) 0.31 K/uL (0.11-0.59) 05/15/19 20:11 Eos # (Auto) 0.14 K/uL (0-0.5) 05/15/19 20:11 Baso # (Auto) 0.02 K/uL (0-0.2) 05/15/19 20:11 PT 10.4 Seconds (9.0-12.0) 05/15/19 21:15 INR 1.0 (0.9-1.1) 05/15/19 21:15 APTT 23.1 Seconds (21.0-31.0) 05/15/19 21:15 PTT Ratio 0.9 05/15/19 21:15 D-Dimer 200 ug/L FEU (0-500) 05/15/19 21:15 Sodium 143 mmol/L (136-145) D 05/16/19 00:35 Potassium 3.1 mmol/L (3.5-5.1) L 05/16/19 00:35 Chloride 113 mmol/L (98-107) H 05/16/19 00:35 Carbon Dioxide 19 mmol/L (21-32) L 05/16/19 00:35 Anion Gap 11.0 (3-11) 05/16/19 00:35 BUN 7 mg/dl (7-18) 05/16/19 00:35 Creatinine 0.50 mg/dl (0.6-1.4) L D 05/16/19 00:35 Est Cr Clr Drug Dosing 171.0 ml/min 05/16/19 00:35 Est GFR ( Amer) 137.5 05/16/19 00:35 Est GFR (Non-Af Amer) 118.6 05/16/19 00:35 BUN/Creatinine Ratio 13.3 (10-20) 05/16/19 00:35 Glucose 187 mg/dl (70-99) H 05/16/19 00:35 Calcium 6.2 mg/dl (8.5-10.1) L D 05/16/19 00:35 Magnesium 1.6 mg/dl (1.8-2.4) L 05/16/19 00:35 Total Bilirubin 0.3 mg/dl (0.2-1) 05/15/19 20:35 AST U/L (15-37) 05/15/19 20:35 ALT 63 U/L (12-78) 05/15/19 20:35 Alkaline Phosphatase 58 U/L (45-117) 05/15/19 20:35 Troponin I < 0.015 ng/ml (0-0.045) 05/16/19 00:35 Total Protein 8.9 gm/dl (6.4-8.2) H 05/15/19 20:35 Albumin 3.8 gm/dl (3.4-5.0) 05/15/19 20:35 Globulin 5.1 gm/dl (2.5-4.0) H 05/15/19 20:35 Albumin/Globulin Ratio 0.7 (0.9-2) L 05/15/19 20:35 Lipase 126 U/L (73-393) 05/15/19 20:35 TSH 0.752 uIu/ml (0.300-4.500) 05/16/19 00:35 Urine Color Yellow 05/15/19 22:15 Urine Appearance Clear (Clear) 05/15/19 22:15 Urine pH 5.0 (4.5-7.5) 05/15/19 22:15 Ur Specific Walker 1.010 (1.000-1.030) 05/15/19 22:15 Urine Protein Negative (Negative) 05/15/19 22:15 Urine Glucose (UA) 3+ (Negative) H 05/15/19 22:15 Urine Ketones Negative (Negative) 05/15/19 22:15 Urine Blood Negative (Negative) 05/15/19 22:15 Urine Nitrite Negative (Negative) 05/15/19 22:15 Urine Bilirubin Negative (Negative) 05/15/19 22:15 Urine Urobilinogen Negative (Negative) 05/15/19 22:15 Ur Leukocyte Esterase Negative (Negative) 05/15/19 22:15 Ethyl Alcohol mg/dL 241.0 mg/dl (0-3) H 05/15/19 20:[address] chest initial read no aortic aneurysm or dissection. No definite evidence of pulmonary emboli. Scattered subpleural nodules. Status post CABG. Diffuse coronary artery calcifications. CT abdomen pelvis initial read moderate atherosclerosis of the aorta and iliac arteries. No aortic aneurysm or dissection. Hepatic steatosis. Nonenhancing cyst mid right kidney. Diverticulosis. No appendicitis. EKG as per my interpretation : Rate 115, sinus tachycardia, RAD, ST depression anterolateral leads (1) Chest pain Chest pain type: unspecified Qualified Code(s): R07.9 - Chest pain, unspecified
[2019-05-16 02:22] LABS: Albumin Level 2.6 gm/dl (3.4-5.0)
[2019-05-16] MEDS ORDERED: PROMETHAZINE 12.5 MG/50.5 ML BAG IV STA (02:25)
[2019-05-16] MEDS ORDERED: CALCIUM GLUCONATE 10% 10 ML VIAL IV STA (02:46)
[2019-05-16] MEDS ORDERED: CALCIUM GLUCONATE 10% 3,000 MG in SODIUM CHLORIDE 0.9% 50 ML IV STA (02:49)
[2019-05-16] MEDS ORDERED: METOPROLOL TARTRATE 1 MG/ML VIAL IV STA (02:53)
[2019-05-16] MEDS ORDERED: METOPROLOL TARTRATE 50 MG TAB PO STA (03:17)
[2019-05-16] MEDS ORDERED: POTASSIUM CHLORIDE 40 MEQ in SODIUM CHLORIDE 0.9% 1000ML 1,000 ML IV SCH (04:10)
[2019-05-16] MEDS ORDERED: GLUCAGON FOR INJ 1 MG VIAL SQ PRN (04:10)
[2019-05-16] MEDS ORDERED: DEXTROSE 50% 50 ML SYRINGE IV PRN (04:10)
[2019-05-16] MEDS ORDERED: LORazepam 0.5 MG/1 ML VIAL IV PRN (04:10)
[2019-05-16] MEDS ORDERED: GLUCOSE 10 TABS/TUBE PO PRN (04:10)
[2019-05-16] MEDS ORDERED: MoRPHine SULFATE 4 MG/ML 1 ML CARP\\VIAL IV PRN (04:10)
[2019-05-16] MEDS ORDERED: CARBOHYDRATES FOR HYPOGLYCEMIA PO PRN (04:10)
[2019-05-16] MEDS ORDERED: ACETAMINOPHEN 325 MG TAB PO PRN ×2 (04:10→10:56)
[2019-05-16] MEDS ORDERED: OXYCODONE HCL IR 5 MG TAB (IMMEDIATE RELEASE) PO PRN (04:10)
[2019-05-16] MEDS ORDERED: GLUCOSE 40% GEL 15 GM TUBE PO PRN (04:10)
[2019-05-16] MEDS: POTASSIUM CHLORIDE / WTR 10 MEQ/100 ML PLCT IV SCH ×4 (04:41→07:37)
[2019-05-16] MEDS: INSULIN ASPART 100 UNITS/ML 3 ML PEN SC SCH ×5 (05:00→20:31)
[2019-05-16 05:59] LABS: Basophils # (auto) 0.02 K/uL (0-0.2); Basophils % (auto) 0.3 %; Eosinophils # (auto) 0.08 K/uL (0-0.5); Eosinophils % (auto) 1.1 %; Hematocrit (blood only) 44.8 % (42-52); Hemoglobin 15.6 g/dL (14.0-18.0); Immature Granulocytes # (auto) 0.03 K/uL (0.00-0.02); Immature Granulocytes % (auto) 0.4 %; Lymphocytes # (auto) 2.17 K/uL (1.2-3.4); Lymphocytes % (auto) 29.4 %; Mean Corpuscular Hemoglobin 32.3 pg (25-34); Mean Corpuscular Hgb Conc 34.8 g/dL (32-36); Mean Corpuscular Volume 92.8 fL (80-100); Mean Platelet Volume 10.6 fL (7.4-10.4); Monocytes % (auto) 5.4 %; Neutrophils # (auto) 4.69 K/uL (1.4-6.5); Neutrophils % (auto) 63.4 %; Platelet Count 178 K/uL (130-400); RDW Coefficient of Variation 12.7 % (11.5-14.5); RDW Standard Deviation 42.9 fL (36.4-46.3); Red Blood Count 4.83 M/uL (4.7-6.1); White Blood Count 7.39 K/uL (4.8-10.8)
[2019-05-16 06:10] LABS: Partial Thromboplastin Ratio 0.8; Partial Thromboplastin Time 22.5 Seconds (21.0-31.0)
[2019-05-16 06:36] LABS: BUN Creatinine Ratio 11.6 (10-20); Blood Urea Nitrogen 9 mg/dl (7-18); Calcium 9.4 mg/dl (8.5-10.1); Carbon Dioxide 23 mmol/L (21-32); Chloride 101 mmol/L (98-107); Est GFR (African American) 115.7; Est GFR (Non-African American) 99.9; Glucose 216 mg/dl (70-99); Magnesium 2.2 mg/dl (1.8-2.4); Potassium 4.9 mmol/L (3.5-5.1); Sodium 132 mmol/L (136-145)
[2019-05-16 06:46] LABS: Troponin I < 0.015 ng/ml (0-0.045)
--- NOTE | 2019-05-16 06:58 | CT Scan Report ---
CT SCAN OF THE BRAIN WITHOUT IV CONTRAST CLINICAL HISTORY: Syncope. Headache. COMPARISON STUDY: No priors. TECHNIQUE: Unenhanced axial CT scan of the brain is performed from the vertex to the skull base. A d ose lowering technique was utilized adhering to the principles of ALARA. CT DOSE: 614.27 mGy.cm FINDINGS: Brain parenchyma: The brain parenchyma is normal in appearance. There is no hemorrhage, mass effect, or evidence of acute territorial ischemia by CT criteria. Agosto-white matter differentiation is preser alfred. No extra-axial fluid collection is seen. Ventricles, sulci, cisterns: Normal in configuration. Intracranial vasculature: There is atherosclerotic calcification of the cavernous carotid and vertebr al arteries. Calvarium: Unremarkable. Sinuses and mastoids: The visualized paranasal sinuses are clear. The mastoid air cells are well pneu matized. Orbits: The bony orbits are grossly intact. IMPRESSION: No acute intracranial abnormality. ACT 112: Negative or not required by law. Electronically signed by: Edson Caba M.D. 05/16/2019 6:57 AM
--- NOTE | 2019-05-16 07:33 | CT Scan Report ---
CT ANGIOGRAM OF THE CHEST COMBO; CT ANGIOGRAM OF THE ABDOMEN AND PELVIS CLINICAL HISTORY: Atypical chest pain. Generalized abdominal pain. COMPARISON STUDY: Chest x-ray dated 05/15/2019. TECHNIQUE: Following the IV administration of 120 cc of Optiray 320, CT angiogram of the chest, abdom en, and pelvis was performed from the thoracic inlet to the proximal femora. Images are reviewed in t he axial, sagittal, and coronal planes. 3-D MIPS images are created and assessed. IV contrast was adm inistered without complication. A dose lowering technique was utilized adhering to the principles of ALARA. CT DOSE: 2144.02 mGy.cm FINDINGS: CHEST: Thyroid: Imaged portions of the thyroid gland are normal in size and attenuation. Thoracic aorta: No intramural hematoma is seen on the unenhanced series. There is atherosclerotic steve cification of the thoracic aorta, which is normal in caliber and demonstrates standard 3-vessel arch anatomy. No dissection is seen. The arch vessels are widely patent. Pulmonary vasculature: The pulmonary trunk is normal in caliber. There are no filling defects identif ied in the main, lobar, or segmental pulmonary arteries to indicate pulmonary embolus. Heart: The patient is status post midline sternotomy. The heart is normal in size and without pericar dial effusion. The coronary arteries are densely calcified. Lungs and pleural spaces: Evaluation of the lung parenchyma is modestly degraded by motion artifact. No airspace consolidation or pleural effusion is identified. There are scattered calcified granulomas . There are numerous (greater than 10 pulmonary and pleural-based nodules scattered throughout both l ungs. The largest nodule is pleural-based seen in the left lower lobe on image #126 and measures up t o 9 mm. Additional sales service representative nodules are seen in the lingula on image #118, the right lower lobe on image #148, and the right middle lobe on image #158. The trachea and central airways are clear. Mediastinum: There are scattered subcentimeter mediastinal lymph nodes. These are not pathologically enlarged by size criteria. Jesenia: There is bilateral hilar adenopathy. Hilar lymph nodes measure up to 1.6 cm in short axis. Axillae: There is no axillary lymphadenopathy. Bony thorax: No destructive bony lesions are identified. ABDOMEN AND PELVIS: Liver: The contrast-enhanced liver is enlarged, measuring 19.9 cm in length. The liver demonstrates d iffusely diminished attenuation consistent with hepatic steatosis. Fatty sparing is noted adjacent to gallbladder fossa. There is no intrahepatic biliary ductal dilatation. The main portal veins appear patent. Gallbladder: Unremarkable. Spleen: Normal in size and attenuation noting heterogeneous arterial phase enhancement. Pancreas: Unremarkable. Adrenal glands: Unremarkable. Kidneys: The contrast enhanced kidneys are normal in size and without hydronephrosis. The kidneys enh ance symmetrically. There is a 1.3 cm cyst seen on the right. Abdominal aorta and iliac arteries: The abdominal aorta is normal in course and caliber noting modera te to advanced atherosclerotic calcification. No aneurysm or dissection is seen. The iliac arteries a re widely patent bilaterally. Major branches of the abdominal aorta: The celiac trunk, superior mesenteric, and inferior mesenteric arteries are widely patent. Hepatic arterial anatomy is conventional. The splenic artery is patent. The renal arteries are patent bilaterally. A small accessory renal artery is noted on the left. Stomach and bowel: A small hiatal hernia is noted. The duodenum is normal in configuration. There is moderate to advanced colonic diverticulosis without CT evidence of acute diverticulitis. No bowel obs truction is seen. The appendix is well-visualized and normal. Peritoneum: There is no intraperitoneal free air or abdominal ascites. There is a fat-containing umbi lical hernia. Lymphadenopathy: None. Pelvic viscera: The bladder, prostate, and seminal vesicles are normal as imaged. Skeletal structures: No destructive bony lesions are seen. IMPRESSION: 1. There is no aneurysm or dissection seen involving the thoracic or abdominal aorta. 2. There is no airspace consolidation or pleural effusion. 3. Unremarkable CT angiogram of the major branches of the abdominal aorta. 4. There is nonspecific bilateral hilar adenopathy. 5. There are numerous (at least 10) subcentimeter pulmonary and pleural-based nodules as above. These measure up to 9 mm. Correlation with any prior chest CT scans is recommended to assess for stability . If no prior studies are available these nodules can be followed as per the Fleischner criteria deta iled below. 6. Hepatomegaly and hepatic steatosis. 7. Moderate to advanced colonic diverticulosis without CT evidence of acute diverticulitis. 8. Additional findings as above. Please refer to below summary of Fleischner criteria recommendations for follow-up of incidental CT n odules Greer [place], Guidelines for management of small pulmonary nodules detected on CT scans: A sta tement from the Fleischner Society, Radiology 237: [phone].) SOLID NODULES Solitary nodule size: <6 mm * low risk patients: no follow-up needed * high risk patients: optional CT at 12 months Solitary nodule size: 6-8 mm * low risk patients: follow-up at 6-12 months, then consider further follow-up at 18-24 months * high risk patients: initial follow-up CT at 6-12 months and then at 18-24 months if no change Solitary nodule size: >8 mm * either low or high risk patients - consider follow-up CT at 3 months, and/or CT-PET, and/or biopsy Multiple nodules size: <6 mm * low risk patients: no routine follow-up * high risk patients: optional CT at 12 months Multiple nodules size: 6-8 mm * low risk patients: follow-up at 3-6 months, then consider further follow-up at 18-24 months * high risk patients: follow-up at 3-6 months, then at 18-24 months if no change Multiple nodules size: >8 mm * low risk patients: follow-up at 3-6 months, then consider further follow-up at 18-24 months * high risk patients: follow-up at 3-6 months, then at 18-24 months if no change Note: newly detected indeterminate nodule in persons 35 years of age or older. * low risk patients: minimal or absent history of smoking and/or other known risk factors * high risk patients: history of smoking or of other known risk factors (e.g. first degree relative with lung cancer, or exposure to asbestos, radon, uranium) * if a nodule up to 8 mm is partly solid or is ground glass further follow-up is required after 24 m onths to exclude possible slow growing adenocarcinoma (JIE) SUBSOLID NODULES Solitary pure ground-glass nodule * nodule size <6 mm - no CT follow-up required * nodule size >=6 mm - follow-up CT at 6-12 months, then every 2 years until 5 years Solitary part-solid nodule * nodule size <6 mm - no CT follow-up required * nodule size >=6 mm - follow-up CT at 3-6 months. If unchanged, and solid component remains <6 mm, then annual follow-up for 5 years Multiple subsolid nodules * nodule size <6 mm - follow-up CT at 3-6 months, consider further follow-up at 2 and 4 years if sta ble * nodule size >=6 mm - follow-up CT at 3-6 months, subsequent management based on the most suspiciou s nodule(s) ACT 112: Negative or not required by law. Electronically signed by: Edson Caba M.D. 05/16/2019 7:32 AM
[2019-05-16] MEDS: lisinopriL 20 MG TAB PO SCH (07:37)
[2019-05-16] MEDS: METOPROLOL TARTRATE 25 MG TAB PO SCH ×2 (07:37→20:27)
[2019-05-16] MEDS: SIMVASTATIN 40 MG TAB PO SCH (07:37)
[2019-05-16] MEDS: ASPIRIN 81 MG ECTAB PO SCH (07:37)
[2019-05-16] MEDS: ENOXAPARIN INJ 40 MG/0.4 ML SYR SQ SCH (07:38)
--- NOTE | 2019-05-16 09:40 | Communication Note ---
Date of Service: May 16, 2019 The patient has had multiple previous heart catheterizations both in [place] as well as [place]. He had coronary artery bypass surgery in [place] and he states several stenting procedures. I do not have those records available to me however, the patient states that he had 3 bypasses at the time of surgery and one was an artery graft. I have explained the risk, benefit, and intent of the cardiac catheterization and potential for additional coronary stents to the patient. Because of the potential for a VOGEL graft he will have a transfemoral approach completed. He is willing to proceed.
[2019-05-16] MEDS ORDERED: SODIUM CHLORIDE 0.9% 1000ML 1,000 ML IV SCH (09:45)
--- NOTE | 2019-05-16 10:09 | Hospitalist Progress Note ---
Date of Service May 16, 2019 Assessment & Plan (1) Chest pain: CHEST PAIN, ACUTE CORONARY SYNDROME RULED OUT hx CAD status post CABG status post stent Troponins negative The patient has an occluded right coronary artery in the proximal and mid segment where previous coronary stent was placed. The saphenous vein graft to the right coronary artery is occluded. The [place] LAD is occluded at its origin. The [place] left circumflex artery is patent. There is a sequential vein graft from the diagonal from the LAD across to the mid LAD which is patent. There is also an JOSE graft from the left to the LAD which is patent. LV function is relatively preserved with hypokinesis of the inferior and inferior basilar myocardium. Per cardiology service recommendations: We will proceed with medical therapy for his coronary artery disease and at this time would recommend PRN sublingual nitroglycerin. Continue usual cardiac medications Patient establish with [facility] cardiology clinic at [facility] [place], clinic to call patient SYNCOPE In the setting of alcohol intoxication We will need outpatient nurse special, to be set up by [facility] cardiology clinic in 1 week No driving, not advised to work until cardiology follow-up in 1 week Hyperlipidemia on statin Rx, recent lipid profile drawn outpatient (serum cholesterol 187, triglycerides 407, HDL 23, LDL 99) Continue statin, continue follow-up as an outpatient DM 2 on oral medications, suboptimal control as of recent outpatient hemoglobin A1c of 9.7 April, Continue usual regimen, close follow-up with outpatient PCP Hypokalemia secondary to home diuretic Rx Potassium 3.1 on admission, replaced Potassium 20 mics p.o. daily ordered Disposition Discharge to home Follow-up with PCP in 1 week Establish with [facility] cardiology clinic at [facility] in 1 week, will need nurse special placement Admission and Anticipated Discharge Date Admission Date: May 16, 2019 Subjective Follow-up for syncope, chest pain Status post cardiac catheterization yesterday Tolerated procedure well Seen resting in bed, sitting up, in good spirits, comfortable States he feels much better overall, back to baseline Denies chest pain since admission No dizziness, lightheadedness, near syncope episodes Ambulating with no problems No shortness of breath, palpitations Denies other symptoms States he is ready noted to be discharged today Review of Systems Review of Systems: All systems reviewed & are unremarkable except as noted in HPI & below Physical Exam Physical Exam: General- oriented x 3, not in distress, speaks in sentences with no effort or accessory muscle use Head- atraumatic Eyes- PERRL, EOMI, anicteric ENT- oropharynx clear Neck- supple, no JVD, no adenopathy, no thyromegaly; carotids +2/2, no bruits appreciated Lungs- clear to auscultation bilaterally, no rales/wheezes Heart- normal rate, regular rhythm; no murmur, no gallop, no rub appreciated Abdomen- normal bowel sounds, nondistended, soft, nontender, no masses or hepa tosplenomegaly Extremities- no pretibial edema, no calf tenderness; peripheral pulses intact Neuro- alert, oriented x 3; CN 2-12 grossly intact; motor 5/5 bilaterally;sensation 100% on all extremities; no other gross focal neurologic deficits Skin- warm & dry Results & Data ([facility]) Vital Signs (Past 12 Hours) Vital Signs Temp Pulse Pulse Resp BP BP Pulse Ox 05/16/19 07:42 36.9 C 64 16 147/86 H 94 05/16/19 04:10 37 C 79 20 151/96 H 93 05/16/19 02:50 90 05/16/19 02:40 90 05/16/19 02:31 154/99 H 91 05/16/19 02:30 92 05/16/19 02:21 94 05/16/19 02:00 101 H 23 94 05/16/19 01:50 107 H 20 96 05/16/19 01:40 111 H 20 96 05/16/19 01:31 105 H 27 H 95 05/16/19 01:30 106 H 16 162/116 H 96 05/16/19 01:20 112 H 24 95 05/16/19 01:10 93 H 23 05/16/19 01:01 99 H 25 H 148/71 H 90 05/16/19 01:00 98 H 21 05/16/19 00:50 102 H 22 93 05/16/19 00:40 95 H 25 H 91 05/16/19 00:31 100 H 23 163/98 H 91 05/16/19 00:30 105 H 18 91 05/16/19 00:20 97 H 24 91 05/16/19 00:10 97 H 21 91 05/16/19 00:01 96 H 17 92 05/16/19 00:00 102 H 14 94 05/15/19 23:50 105 H 21 92 05/15/19 23:45 101 H 20 92 05/15/19 23:40 32 H 05/15/19 23:36 92 05/15/19 22:40 22 95 05/15/19 22:30 23 164/150 H 93 05/15/19 22:20 20 05/15/19 22:10 23 95 Laboratory Results All noted and reviewed (1) Chest pain Chest pain type: unspecified Qualified Code(s): R07.9 - Chest pain, unspecified
--- NOTE | 2019-05-16 10:56 | Cardiac Catheterization ---
Date of Service May 16, 2019 Cardiac Cath Report Cardiac Cath Report Procedure: 1. Left heart catheterization 2. Coronary angiography 3. Left ventriculogram History: This is a 58-year-old male patient who presented with chest pain and nonspecific EKG changes. His cardiac markers elevated slightly and he was referred for cardiac catheterization. ACC data: Start time 10:14 AM End time 10:40 AM Opening aortic pressure 118/71 Left ventricular pressure 123/20 Closing aortic pressure 126/74 Sedation 1 mg intravenous Versed IV fluid 55 cc normal saline Contrast 120 cc Optiray Fluoroscopy time 3.4 minutes Radiation 1177 mGy Dap 118 mGy/m ACC score 9 Right dominant system Coronary angiography: Selective injections of the left coronary artery revealed the left main trunk to be patent. There is a small ramus branch from the left main trunk which is patent the left circumflex artery consists of a large distal first marginal branch and several smaller distal marginal branches. The left circumflex artery is widely patent. The LAD extends all the way to the apex of the heart. The LAD has minor luminal irregularities and is widely patent. The LAD gives off 2 medium size diagonal branches which are widely patent. Selective injections of the right coronary artery reveal it to be dominant. The right coronary artery is widely patent. Left ventriculogram: The left ventricle is of normal size with normal systolic function. The mitral valve is competent. The aortic root and ascending aorta have normal morphology and diameter. Summary: Widely patent coronary anatomy. Normal left ventricular function. Recommendations: Continued risk factor modification and follow-up with PCP.
[2019-05-16] MEDS ORDERED: MIDAZOLAM HCL 1 MG/ML 2ML VIAL ONE (10:58)
[2019-05-16] MEDS ORDERED: fentaNYL citrate 100 MCG/2 ML VIAL ONE (10:58)
--- NOTE | 2019-05-16 10:58 | Electrocardiogram Report ---
Test Reason : Blood Pressure : / mmHG Vent. Rate : 114 BPM Atrial Rate : 114 BPM P-R Int : 156 ms QRS Dur : 112 ms QT Int : 348 ms P-R-T Axes : 054 098 -43 degrees QTc Int : 479 ms Sinus tachycardia Rightward axis T wave abnormality, consider inferolateral ischemia Abnormal ECG No previous ECGs available Confirmed by Cristóbal Ellis ([id number]) on 05/16/2019 10:57:35 AM Referred By: REFERRED SELF Confirmed By:Cristóbal Ellis
[2019-05-16] MEDS: SODIUM CHLORIDE 0.9% 1000ML 1,000 ML IV SCH ×2 (12:15→23:00)
--- NOTE | 2019-05-16 12:15 | Cardiac Catheterization ---
Date of Service May 16, 2019 Cardiac Cath Report Cardiac Cath Report Procedure: 1. Left heart catheterization 2. Coronary angiography 3. Left ventriculogram 4. Aortography History: This is a 58-year-old male patient with a long history of coronary artery disease. Most of his cardiac treatment has been through [facility] as well as [facility]. Approximately 10 years ago he had coronary artery bypass surgery at [facility]. He also indicates that he had coronary stents placed at [facility]. He presented with new onset angina. Procedure summary: After informed consent was obtained the patient was taken to the cardiac catheterization lab where access was obtained using a retrograde cylinder technique from the right femoral artery. Preformed 5 Burkin[place] diagnostic catheters were used for the coronary angiograms. A 5 Burkin[place] pigtail catheter was utilized for the left ventriculogram and aortogram. Following the procedure patient had the arterial site closed with a minx device and was returned to his room in stable condition. ACC data: Start time 11:09 AM End time 11:40 AM Opening aortic pressure 149/89 Left ventricular pressure 148/29 Closing aortic pressure 131/88 Sedation 1 mg intravenous Versed IV fluid 53 cc normal saline Contrast 240 cc Optiray Fluoroscopy time 7.8 minutes Radiation 1939 mGy DAP 212 mGy/m Right dominant system AUC score 7 Coronary angiography: Selective injections of the left coronary artery reveal minor luminal irregu larities distally in the left main trunk. The LAD is occluded at its origin. The left circumflex artery a large first marginal branch that bifurcates into 2 equal branches. There are also moderate to large second and third marginal branches. The left circumflex system has luminal irregularities but is widely patent and supplies collaterals to the distal right coronary artery. Selective injections of the [place] right coronary artery revealed to be occluded proximally. There is evidence of a previous stent within the right coronary artery which is 100% occluded. The saphenous vein graft to the right coronary artery is occluded. There is a saphenous vein graft from the aorta sequentially from a large first diagonal to the LAD. There is competitive flow between the saphenous vein graft and the JOSE graft. The saphenous vein graft is widely patent. The VOGEL graft to the LAD is widely patent and supplies both antegrade and retrograde flow to the LAD across the saphenous vein graft into the diagonal branch. Aortogram: The aortogram was completed to help document the occluded saphenous vein graft to the right coronary artery and to exclude other possible unknown bypass grafts. Left ventriculogram: The left ventricle is of normal size. There is normal systolic function except for the basilar and inferior myocardium are hypokinetic. The estimated left ventricular ejection fraction is around 50%. The mitral valve is competent. The aortic root and ascending aorta have normal morphology. Summary: The patient has an occluded right coronary artery in the proximal and mid segment where previous coronary stent was placed. The saphenous vein graft to the right coronary artery is occluded. The [place] LAD is occluded at its origin. The [place] left circumflex artery is patent. There is a sequential vein graft from the diagonal from the LAD across to the mid LAD which is patent. There is also an JOSE graft from the left to the LAD which is patent. LV function is relatively preserved with hypokinesis of the inferior and inferior basilar myocardium. Recommendations: The recommendations are for continued medical management of the patient's coronary artery disease.
--- NOTE | 2019-05-16 13:19 | Cardiology Consultation ---
Date of Consultation May 16, 2019 Assessment & Plan (1) Chest pain: Given the fact that this is his anginal equivalent I do believe further evaluation is warranted at this time and the patient will undergo cardiac catheterization. 2D echocardiogram shows anterior/anterior septal wall motion abnormalities unclear if postop surgical changes versus LAD territory ischemia. This is a new finding compared to previous echocardiogram report he had from 2008. The patient is in agreement with this plan. Further recommendations to be made after cardiac catheterization. (2) Syncope: Unclear etiology. We will rule out ischemia as a possible cause with the above catheterization. No monitor the cardiac catheterization findings would like to remain on telemetry overnight and will require outpatient telemetry monitoring as well which we will arrange through [facility] prior to discharge. The patient would then like to follow-up with [facility] cardiology at our [place] office. History of Present Illness Reason for Consultation: Syncope and chest pain. Requesting Physician: Dr. Adams Attending Physician: Len Herring MD History of Present Illness It was my pleasure to see Mr. Rosa in consultation today May 16, 2019. 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 He is previously followed with Dr. Garcia tomorrow. He presented to [facility] on 05/15/2019 with complaints of a syncopal event followed by chest pain. Patient states he has been in his usual health as of late however yesterday he was feeling very lightheaded. He felt himself starting to pass out and he called to alert his daughter. He did lose consciousness and was found unresponsive by his daughter but was arousable. When he awoke he had significant chest pain. He described it as sharp/pressure sensation that is very similar to his anginal equivalent several years ago. It was associated with significant nausea and shortness of breath. He became c oncerned and came in the emergency department. In the ER he was given sublingual nitroglycerin with resolution of his chest discomfort. He has not had any further chest discomfort overnight and is now feeling well. Again, he states that this is the exact same presentation as he has had in the past prior to CABG and PCI's. Past cardiac history: 1. PCI to the LAD and RCA in 2004 2. In 2005 underwent CABG x3 at [facility] where he received a VOGEL to the LAD, vein graft to a diagonal and vein graft to the RCA. 3. Tobacco abuse 4. Hypertension 5. Dyslipidemia 6. Very poor diet 7. Diabetes Allergies Allergy/AdvReac Type Severity Reaction Status Date / Time No Known Allergies Allergy Verified 05/15/19 20:28 Home Medications Home Medications Medication Instructions Recorded Confirmed Type aspirin [Aspir-81] 81 mg PO QAM 05/15/19 05/15/19 History lisinopril-hydrochlorothiazide 1 tab PO QAM 05/15/19 05/15/19 History metformin 500 mg PO BID 05/15/19 05/15/19 History metoprolol tartrate [Lopressor] 75 mg PO BID 05/15/19 05/15/19 History simvastatin 40 mg PO QAM 05/15/19 05/15/19 History Patient History Medical History Diabetes Surgical History Hx of heart artery stent S/P triple vessel bypass Social History Preferred Language: Malawian Communication Ability: Effective Medical Accounts Receivable Specialist Required: No Beliefs That Will Affect Care: None Current Living Situation: Spouse Other Information That Helps Us Care for You: No Feels Safe at Home: Yes Safety Concerns: Feels Safe At This Time Smoking Status: Never smoker Do You Dip or Chew Tobacco: No ; Second Hand Exposure: No ; Tobacco Cessation Education Requested by Patient: No Hx Alcohol Use: Yes Alcohol type: beer Hx Substance Use: No Review of Systems Review of Systems: All systems reviewed & are unremarkable except as noted in HPI & below Physical Exam Physical Exam: General: Awake, alert and oriented x 3. No acute distress. HEENT: Normocephalic, atraumatic. Pupils equal, round and reactive to light and accommodation. Extraocular muscles are intact. Anicteric sclera. Moist mucous membranes. Neck: No JVD. No bruit. Cardiovascular: Regular. Positive S-4. Normal S-1 and S-2. No S-3. No murmurs or rubs. Pulmonary: Clear to auscultation B/L. No rales, rhonchi or wheezing Abdomen: Bowel sounds x 4, soft. No rebound, guarding or tenderness. No organomegaly. Extremities: No clubbing, cyanosis or edema. +2 pedal pulses bilaterally. Skin: Warm and dry. Results & Data ([facility]) Vital Signs (Past 12 Hours) Vital Signs Temp Pulse Pulse Resp BP BP Pulse Ox 05/16/19 13:00 60 20 137/88 91 05/16/19 12:45 65 18 128/87 93 05/16/19 12:30 58 L 22 119/71 92 05/16/19 12:15 36.5 C 60 20 135/91 91 05/16/19 12:05 62 18 100/78 92 05/16/19 11:50 60 18 156/93 H 91 05/16/19 10:47 59 L 16 128/80 96 05/16/19 07:42 36.9 C 64 16 147/86 H 94 05/16/19 04:10 37 C 79 20 151/96 H 93 05/16/19 02:50 90 05/16/19 02:40 90 05/16/19 02:31 154/99 H 91 05/16/19 02:30 92 05/16/19 02:21 94 05/16/19 02:00 101 H 23 94 05/16/19 01:50 107 H 20 96 05/16/19 01:40 111 H 20 96 05/16/19 01:31 105 H 27 H 95 05/16/19 01:30 106 H 16 162/116 H 96 05/16/19 01:20 112 H 24 95 (1) Chest pain Chest pain type: unspecified Qualified Code(s): R07.9 - Chest pain, un specified (2) Syncope Syncope type: unspecified Qualified Code(s): R55 - Syncope and collapse
--- NOTE | 2019-05-16 13:31 | Electrocardiogram Report ---
Test Reason : Blood Pressure : / mmHG Vent. Rate : 059 BPM Atrial Rate : 059 BPM P-R Int : 168 ms QRS Dur : 106 ms QT Int : 482 ms P-R-T Axes : 011 089 090 degrees QTc Int : 477 ms Sinus bradycardia Otherwise normal ECG When compared with ECG of 15-MAY-2019 20:08, Vent. rate has decreased BY [address] elevation now present in Inferior leads T wave inversion no longer evident in Inferior leads T wave inversion no longer evident in Lateral leads Confirmed by Cristóbal Ellis ([id number]) on 05/16/2019 1:30:57 PM Referred By: REFERRED SELF Confirmed By:Cristóbal Ellis
[2019-05-16] MEDS ORDERED: Nursing to Pharmacy Communication ONE (19:13)
[2019-05-16] MEDS: INSULIN GLARGINE SOLOSTAR 100 UNITS/ML 3 ML PEN SC SCH (20:31)
[2019-05-16] MEDS ORDERED: INSULIN GLARGINE SOLOSTAR 100 UNITS/ML 3 ML PEN SC SCH (21:00)
[2019-05-17] MEDS: INSULIN ASPART 100 UNITS/ML 3 ML PEN SC SCH ×2 (08:03→11:49)
[2019-05-17] MEDS: ENOXAPARIN INJ 40 MG/0.4 ML SYR SQ SCH (08:03)
[2019-05-17] MEDS: ASPIRIN 81 MG ECTAB PO SCH (08:04)
[2019-05-17] MEDS: lisinopriL 20 MG TAB PO SCH (08:04)
[2019-05-17] MEDS: INSULIN GLARGINE SOLOSTAR 100 UNITS/ML 3 ML PEN SC SCH (08:04)
[2019-05-17] MEDS: SIMVASTATIN 40 MG TAB PO SCH (08:04)
[2019-05-17] MEDS: METOPROLOL TARTRATE 25 MG TAB PO SCH (08:08)
--- NOTE | 2019-05-17 10:10 | Cardiology Progress Note ---
Date of Service May 17, 2019 Assessment & Plan (1) Syncope: (2) Chest pain: (3) Alcohol intoxication: (4) Diabetes: (5) CAD (coronary artery disease): (6) Hx of CABG: The patient by cardiac catheterization has significant ischemic heart disease however it is currently stable and should be managed medically. On the day of admission the patient consumed a large quantity of alcohol which may have contributed to his syncope. He has had no significant arrhythmias on telemetry and has been asymptomatic since admission. At this point I would recommend the patient be discharged home. We will arrange for an outpatient monitor for 7 days. 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 I offered him our clinic in [place] where we can see him in follow-up and he agreed. 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 I think he should remain off of work until we see him in the clinic with follow-up as well as review the telemetry from the monitor he will have as an outpatient. Subjective The patient had an uneventful night. Review of the telemetry indicates sinus rhythm with sinus bradycardia while sleeping. No other significant arrhythmias. In interviewing the patient today he was admitted after syncopal event however, he had just returned home after being out at the local establishment where he consumed at least 8 beers before returning home. After arriving there he was going to his kitchen to have something to eat and became queasy, called his daughter and the next thing he knew he was in the ambulance.He has had no additional dizziness or lightheadedness. No presyncope or syncope after admission. Review of Systems Review of Systems: All systems reviewed & are unremarkable except as noted in HPI & below Nothing additional to add. Physical Exam Physical Exam: General: no acute distress and stated age Head: normocephalic, no masses, lesions, tenderness or abnormalities Eyes: conjunctiva are pink and non-injected, sclera clear Neck: supple, no adenopathy, no bruits, normal jugular venous pulse, no hepatojugular reflux Chest: normal shape and normal respiratory effort Lungs: clear to auscultation and percussion Cardiac Exam: - regular rate & rhythm, no murmurs gallops or rubs - normal S1, normal S2 Pulses: 2(+) throughout Abdomen: abdomen soft, non-tender, no abnormal masses and no hepatosplenomegaly Musculoskeletal: no gait disturbance, no joint inflammation, no deforming arthritis Extremities: no edema and no cyanosis Neuro: grossly normal exam Results & Data Vital Signs (Past 12 Hours) Vital Signs Temp Pulse Resp BP Pulse Ox 05/17/19 08:00 36.6 C 83 20 124/74 92 05/17/19 03:51 36.6 C 54 L 18 110/62 93 05/17/19 00:26 36.5 C 48 L 99/58 L 96 Laboratory Results Laboratory Results - last 24 hr 05/16/19 05/16/19 05/16/19 10:37 16:09 20:24 POC Glucose 175 H 204 H 215 H 05/17/19 07:37 POC Glucose 189 H Medications Administered Current Inpatient Medications Acetaminophen (Tylenol) 650 mg PO Q4H PRN PRN Reason: Pain 1-3 or Fever Stop: 06/15/19 04:09 Aspirin (Ecotrin Ectab) 81 mg PO QAM [facility] Stop: 06/15/19 08:59 Last Admin: 05/17/19 08:04 Dose: 81 mg Documented by: Dextrose (Dextrose 50%) 25 - 50 ml IV UD PRN; Protocol PRN Reason: Hypoglycemia Protocol Stop: 06/15/19 04:09 Enoxaparin Sodium (Lovenox) 40 mg SQ QAM [facility] Stop: 06/15/19 08:59 Last Admin: 05/17/19 08:03 Dose: 40 mg Documented by: Glucagon (Glucagen) 1 mg SQ UD PRN; Protocol PRN Reason: Hypoglycemia Protocol Stop: 06/15/19 04:09 Glucose (Dex4 Glucose) 4 - 8 tabs PO UD PRN; Protocol PRN Reason: Hypoglycemia Protocol Stop: 06/15/19 04:09 Glucose (Glucose 40%) 15 - 30 gm PO UD PRN; Protocol PRN Reason: Hypoglycemia Protocol Stop: 06/15/19 04:09 Lorazepam (Ativan) 0.5 mg in 1 mls @ 1 mls/min IV Q4H PRN PRN Reason: Anxiety/Agitation Stop: 06/15/19 04:09 Insulin Aspart (Novolog Flexpen) 0 units SC ACHS [facility] Stop: 06/15/19 20:59 Last Admin: 05/17/19 08:03 Dose: 4 units Documented by: Insulin Glargine (Lantus Solostar Pen) 10 units SC BID [facility] Stop: 06/15/19 20:59 Last Admin: 05/17/19 08:04 Dose: 10 units Documented by: Lisinopril (Zestril) 20 mg PO QAM [facility] Stop: 06/15/19 08:59 Last Admin: 05/17/19 08:04 Dose: 20 mg Documented by: Metoprolol Tartrate (Lopressor) 75 mg PO BID [facility] Stop: 06/15/19 08:59 Last Admin: 05/17/19 08:08 Dose: 75 mg Documented by: Miscellaneous (Carbohydrates For Hypoglycemia) 15 - 30 gm PO UD PRN PRN Reason: Hypoglycemia Protocol Stop: 06/15/19 04:09 Morphine Sulfate (Morphine Sulfate) 4 mg IV Q4H PRN PRN Reason: Pain Stop: 05/30/19 04:09 Oxycodone HCl (Roxicodone Immediate Rel) 5 mg PO Q4H PRN PRN Reason: Pain Stop: 05/30/19 04:09 [facility]) [facility] Stop: 06/15/19 08:59 Last Admin: 05/17/19 08:04 Dose: 40 mg Documented by: (1) Syncope Syncope type: unspecified Qualified Code(s): R55 - Syncope and collapse (2) Chest pain Chest pain type: unspecified Qualified Code(s): R07.9 - Chest pain, unspecified (3) Alcohol intoxication Complication of substance-induced condition: uncomplicated Qualified Code(s): F10.920 - Alcohol use, unspecified with intoxication, uncomplicated
--- NOTE | 2019-05-17 10:59 | Electrocardiogram Report ---
Test Reason : Blood Pressure : / mmHG Vent. Rate : 050 BPM Atrial Rate : 050 BPM P-R Int : 204 ms QRS Dur : 100 ms QT Int : 530 ms P-R-T Axes : -03 083 077 degrees QTc Int : 483 ms Sinus bradycardia Prolonged QT Abnormal ECG When compared with ECG of 16-MAY-2019 13:02, No significant change was found Confirmed by Cristóbal Ellis ([id number]) on 05/17/2019 10:59:38 AM Referred By: REFERRED SELF Confirmed By:Cristóbal Ellis
--- NOTE | 2019-05-17 12:12 | Discharge Summary ---
Date of Service May 17, 2019 Admission HPI Per Admitting Provider History obtained from patient, family, and records. Medical history significant for CAD status post CABG status post stent, hypertension, hyperlipidemia, DM 2 on oral medications, past tobacco abuse. Patient has not seen a news videographer for more than 10 years because he did not like his [place] specialist. Intermittent chest pain, about weekly symptoms, usually with exertion, usually relieved with rest for some time now. SBP 130s on last recheck at PCPs office a few days ago. Some stress over the last few months from worrying about patient's sister's breast cancer recurrence. Patient not feeling well yesterday although appetite okay. Drinking alcohol yesterday about not habitual and heavy as per patient/family. He called his daughter a few hours ago feeling like he was given a pass out. Sinus headache symptoms as per patient. Patient found by daughter unconscious but arousable. Patient woke up with sharp substernal pain as if somebody was standing on his chest similar to his first heart attack. Some improvement with nitroglycerin administration at the ER. 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 Admission Exam Per Admitting Provider GENERAL: Comfortable, pleasant, obese, alcoholic fetor, no respiratory distress SKIN: Normal color, warm HEENT: Partial alopecia, bespectacled, pink palpebral conjunctivae, no ptosis, dry buccal mucosa NECK : Supple, short neck, no tenderness CHEST : CTA, no tenderness HEART : Tachycardic, no obvious murmurs ABDOMEN: Some distention, nontender EXTREMITIES : No LE swelling/tenderness, no other conspicuous deformities noted NEUROLOGIC : Coherent, no facial asymmetry, no other gross focality Principal Diagnosis Chest pain, acute coronary syndrome ruled out Discharge Data Allergies Allergy/AdvReac Type Severity Reaction Status Date / Time No Known Allergies Allergy Verified 05/15/19 20:28 Consultations 05/16/19 00:59 ED Decision to Admit Stat 05/16/19 04:10 Consult Cardiology Routine 05/16/19 09:47 Consult Cardiac Catheterization Routine Procedures Performed Operation Date: 05/16/19 12:00 Actual Procedures p Cath, Left w/Cors Vent Grafts - Max Zaidi DO s Cineradiography w/Routine Exam - Max Zaidi DO Ordered Studies 05/15/19 22:10 CT angio abdomen pelvis w con Stat CT angio chest dissec wo/w con Stat 05/16/19 01:53 CT head/brain wo con Urgent 05/16/19 10:57 CL Cath Imgs for PACS use only Routine Hospital Course (1) Chest pain: CHEST PAIN, ACUTE CORONARY SYNDROME RULED OUT hx CAD status post CABG status post stent Troponins negative The patient has an occluded right coronary artery in the proximal and mid segment where previous coronary stent was placed. The saphenous vein graft to the right coronary artery is occluded. The [place] LAD is occluded at its origin. [place] left circumflex artery is patent. There is a sequential vein graft from the diagonal from the LAD across to the mid LAD which is patent. There is also an JOSE graft from the left to the LAD which is patent. LV function is relatively preserved with hypokinesis of the inferior and inferior basilar myocardium. Per cardiology service recommendations: We will proceed with medical therapy for his coronary artery disease and at this time would recommend PRN sublingual nitroglycerin. Continue usual cardiac medications Patient establish with [facility] cardiology clinic at [facility], clinic to call patient SYNCOPE In the setting of alcohol intoxication We will need outpatient certified master safe technician, to be set up by [facility] cardiology clinic in 1 week No driving, not advised to work until cardiology follow-up in 1 week Hyperlipidemia on statin Rx, recent lipid profile drawn outpatient (serum cholesterol 187, triglycerides 407, HDL 23, LDL 99) Continue statin, continue follow-up as an outpatient DM 2 on oral medications, suboptimal control as of recent outpatient hemoglobin A1c of 9.7 April, Continue usual regimen, close follow-up with outpatient PCP Hypokalemia secondary to home diuretic Rx Potassium 3.1 on admission, replaced Potassium 20 mics p.o. daily ordered Disposition Discharge to home Follow-up with PCP in 1 week Establish with [facility] cardiology clinic at [facility] in 1 week, will need certified master safe technician placement Discharge Plan Discharge Items Patient Disposition: Home - Self-Care Reason For Visit: CHEST PAIN, HYPOCALCEMIA Discharge Diagnosis: Chest pain Activity: Resume your previous activity Activity Comment: Resume activity gradually as tolerated, no heavy exertion Lifting: Wait until after follow-up appointment Exercise/Sports: Wait until after follow-up appointment Driving/Machine Use: No driving until reevaluated and allowed by news videographer Non-emergency contact: Primary Care Provider Call non-emergency contact if: you have any medication questions, you have a fever, your wound has increased redness, your wound has increased drainage and your wound pain has increased Follow-up/Referrals: Max Zaidi DO [Dewaterer Operator] - Roman Hooker MD [Primary Care Provider] - 05/20/19 1:05 pm Diet: Carb Consistent or DM2 and Heart Healthy Addtl Attending Provider Instructions: Instructions for Nitrostat tablet: take 1 tablet under the tongue as needed for chest pain; if chest pain does not resolve in 3-5 minutes, call 911 immediately Do not take metformin today and tomorrow. Resume taking your metformin on May 19, 2019, . Do not take lisinopril with HCTZ today. Resume taking this medicine tomorrow May 18, 2019. Drink plenty of fluids. Do not take NSAID medication such as ibuprofen, naproxen, etc. Follow-up with primary care physician in 1 week as outlined above. Follow-up with [facility] cardiology clinic at [facility] in 1 week. You need to have a heart monitor device placed. Please call their office for an appointment. Cardiology clinic contact information outlined above. No smoking, no alcohol use. . Who to Call and When: Medical Emergencies: If at any time you feel your situation is an emergency, please call 911 immediately. Call 911 immediately or go to your nearest Emergency Room if you experience any of the following: Warning Signs and Symptoms of a Heart Attack * Chest pain that is not relieved by medication * Shortness of breath Recurrence of passing out Pending Studies at Discharge: Yes Studies:: Heart monitor device placement by cardiology clinic in 1 week Stand-Alone Forms: My [facility] [employer], Smoking Cessation Medications and DC Order Prescriptions: New nitroglycerin [Nitrostat] 0.3 mg tablet, sublingual 0.3 mg sublingual UD Qty: 20 RF: 1 Continued metformin 500 mg Tablet 500 mg PO BID RF: 0 aspirin [Aspir-81] 81 mg Tablet,Delayed Release (Dr/Ec) 81 mg PO QAM RF: 0 simvastatin 40 mg Tablet 40 mg PO QAM RF: 0 metoprolol tartrate [Lopressor] 50 mg Tablet 75 mg PO BID RF: 0 lisinopril-hydrochlorothiazide 20-25 mg Tablet 1 tab PO QAM RF: 0 Discharge Orders: Discharge Order (Routine); Ordered 05/17/19 Ordered By: Len Lehman/Other Patient Handouts: Diabetes Correction Complications, Diabetes Healthy Meals, Diabetes Exercise Benefits, Diabetes Living Life, Diabetes Manage A1C Test Admission Data Admit Date/Time: 05/16/19 02:36 Attending Provider: Len Herring Admit Provider: Paul Sullivan Primary Care Provider: Roman Hooker Other Providers: Paul Sullivan ; Glen Carrera ; Max Zaidi
--- NOTE | 2019-05-17 12:15 | Hospitalist Progress Note ---
Date of Service May 17, 2019 Assessment & Plan (1) Chest pain: CHEST PAIN, ACUTE CORONARY SYNDROME RULED OUT hx CAD status post CABG status post stent Troponins negative The patient has an occluded right coronary artery in the proximal and mid segment where previous coronary stent was placed. The saphenous vein graft to the right coronary artery is occluded. [place] LAD is occluded at its origin. [place] left circumflex artery is patent. There is a sequential vein graft from the diagonal from the LAD across to the mid LAD which is patent. There is also an JOSE graft from the left to the LAD which is patent. LV function is relatively preserved with hypokinesis of the inferior and inferior basilar myocardium. Per cardiology service recommendations: We will proceed with medical therapy for his coronary artery disease and at this time would recommend PRN sublingual nitroglycerin. Continue usual cardiac medications Patient establish with [facility] cardiology clinic at [facility], clinic to call patient SYNCOPE In the setting of alcohol intoxication We will need outpatient front desk monitor, to be set up by [facility] cardiology clinic in 1 week No driving, not advised to work until cardiology follow-up in 1 week Hyperlipidemia on statin Rx, recent lipid profile drawn outpatient (serum cholesterol 187, triglycerides 407, HDL 23, LDL 99) Continue statin, continue follow-up as an outpatient DM 2 on oral medications, suboptimal control as of recent outpatient hemoglobin A1c of 9.7 April, In light of IV contrast during cardiac catheterization, resume metformin May 19, 2019 Further management and close follow-up with outpatient PCP Hypokalemia secondary to home diuretic Rx Potassium 3.1 on admission, replaced Potassium 20 milliequivalents p.o. daily ordered Repeat basic metabolic profile on follow-up with PCP in 1 week Disposition Discharge to home Follow-up with PCP in 1 week Establish with [facility] cardiology clinic at [facility] in 1 week, will need front desk monitor placement Admission and Anticipated Discharge Date Admission Date: May 16, 2019 Subjective Follow-up for chest pain, syncope Seen resting in bed, comfortable, not in distress States he feels fine overall No chest pain since admission No dizziness, lightheadedness, near syncope since admission Ambulating well in the room with no problem Denies other symptoms States he feels back to baseline States he is ready would like to be discharged today Review of Systems Review of Systems: All systems reviewed & are unremarkable except as noted in HPI & below Physical Exam Physical Exam: General- oriented x 3, not in distress, speaks in sentences with no effort or accessory muscle use Head- atraumatic Eyes- PERRL, EOMI, anicteric ENT- oropharynx clear Neck- supple, no JVD, no adenopathy, no thyromegaly; carotids +2/2, no bruits appreciated Lungs- clear to auscultation bilaterally, no rales/wheezes Heart- normal rate, regular rhythm; no murmur, no gallop, no rub appreciated Abdomen- normal bowel sounds, nondistended, soft, nontender, no masses or hepatosplenomegaly Extremities- no pretibial edema, no calf tenderness; peripheral pulses intact Neuro- alert, oriented x 3; CN 2-12 grossly intact; motor 5/5 bilaterally;sensation 100% on all extremities; no other gross focal neurologic deficits Skin- warm & dry Results & Data ([facility]) Vital Signs (Past 12 Hours) Vital Signs Temp Pulse Resp BP Pulse Ox 05/17/19 11:52 37 C 50 L 16 118/63 95 05/17/19 08:00 36.6 C 83 20 124/74 92 05/17/19 03:51 36.6 C 54 L 18 110/62 93 05/17/19 00:26 36.5 C 48 L 99/58 L 96 Laboratory Results All noted and reviewed (1) Chest pain Chest pain type: unspecified Qualified Code(s): R07.9 - Chest pain, unspecified
--- NOTE | 2019-05-17 12:21 | Discharge Summary ---
Date of Service May 17, 2019 Admission HPI Per Admitting Provider Chief Complaint: Passed out , chest pain Primary Care Provider: Roman Hooker MD History obtained from patient, family, and records. Medical history significant for CAD status post CABG status post stent, hyperte nsion, hyperlipidemia, DM 2 on oral medications, past tobacco abuse. 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 Intermittent chest pain, about weekly symptoms, usually with exertion, usually relieved with rest for some time now. SBP 130s on last recheck at PCPs office a few days ago. Some stress over the last few months from worrying about patient's sister's breast cancer recurrence. Patient not feeling well yesterday although appetite okay. Drinking alcohol yesterday about not habitual and heavy as per patient/family. He called his daughter a few hours ago feeling like he was given a pass out. Sinus headache symptoms as per patient. Patient found by daughter unconscious but arousable. Patient woke up with sharp substernal pain as if somebody was standing on his chest similar to his first heart attack. Some improvement with nitroglycerin administration at the ER. Admission Exam Per Admitting Provider GENERAL: Comfortable, pleasant, obese, alcoholic fetor, no respiratory distress SKIN: Normal color, warm HEENT: Partial alopecia, bespectacled, pink palpebral conjunctivae, no ptosis, dry buccal mucosa NECK : Supple, short neck, no tenderness CHEST : CTA, no tenderness HEART : Tachycardic, no obvious murmurs ABDOMEN: Some distention, nontender EXTREMITIES : No LE swelling/tenderness, no other conspicuous deformities noted NEUROLOGIC : Coherent, no facial asymmetry, no other gross focality Principal Diagnosis Chest pain, acute coronary syndrome ruled out Discharge Exam General- oriented x 3, not in distress, speaks in sentences with no effort or accessory muscle use Head- atraumatic Eyes- PERRL, EOMI, anicteric ENT- oropharynx clear Neck- supple, no JVD, no adenopathy, no thyromegaly; carotids +2/2, no bruits appreciated Lungs- clear to auscultation bilaterally, no rales/wheezes Heart- normal rate, regular rhythm; no murmur, no gallop, no rub appreciated Abdomen- normal bowel sounds, nondistended, soft, nontender, no masses or hepatosplenomegaly Extremities- no pretibial edema, no calf tenderness; peripheral pulses intact Neuro- alert, oriented x 3; CN 2-12 grossly intact; motor 5/5 bilaterally;sensation 100% on all extremities; no other gross focal neurologic deficits Skin- warm & dry Discharge Data Allergies Allergy/AdvReac Type Severity Reaction Status Date / Time No Known Allergies Allergy Verified 05/15/19 20:28 Consultations 05/16/19 00:59 ED Decision to Admit Stat 05/16/19 04:10 Consult Cardiology Routine 05/16/19 09:47 Consult Cardiac Catheterization Routine Procedures Performed Operation Date: 05/16/19 12:00 Actual Procedures p Cath, Left w/Cors Vent Grafts - Max Zaidi DO s Cineradiography w/Routine Exam - Max Zaidi DO Ordered Studies 05/15/19 22:10 CT angio abdomen pelvis w con Stat CT angio chest dissec wo/w con Stat CLINICAL HISTORY: Atypical chest pain. Generalized abdominal pain. COMPARISON STUDY: Chest x-ray dated 05/15/2019. TECHNIQUE: Following the IV administration of 120 cc of Optiray 320, CT angiogram of the chest, abdomen, and pelvis was performed from the thoracic inlet to the proximal femora. Images are reviewed in the axial, sagittal, and coronal planes. 3-D MIPS images are created and assessed. IV contrast was administered without complication. A dose lowering technique was utilized adhering to the principles of ALARA. CT DOSE: 2144.02 mGy.cm FINDINGS: CHEST: Thyroid: Imaged portions of the thyroid gland are normal in size and attenuation. Thoracic aorta: No intramural hematoma is seen on the unenhanced series. There is atherosclerotic calcification of the thoracic aorta, which is normal in caliber and demonstrates standard 3-vessel arch anatomy. No dissection is seen. The arch vessels are widely patent. Pulmonary vasculature: The pulmonary trunk is normal in caliber. There are no filling defects identified in the main, lobar, or segmental pulmonary arteries to indicate pulmonary embolus. Heart: The patient is status post midline sternotomy. The heart is normal in size and without pericardial effusion. The coronary arteries are densely calcified. Lungs and pleural spaces: Evaluation of the lung parenchyma is modestly degraded by motion artifact. No airspace consolidation or pleural effusion is identified. There are scattered calcified granulomas. There are numerous (greater than 10 pulmonary and pleural-based nodules scattered throughout both lungs. The largest nodule is pleural-based seen in the left lower lobe on image #126 and measures up to 9 mm. Additional [employer] nodules are seen in the lingula on image #118, the right lower lobe on image #148, and the right middle lobe on image #158. The trachea and central airways are clear. Mediastinum: There are scattered subcentimeter mediastinal lymph nodes. These are not pathologically enlarged by size criteria. Jesenia: There is bilateral hilar adenopathy. Hilar lymph nodes measure up to 1.6 cm in short axis. Axillae: There is no axillary lymphadenopathy. Bony thorax: No destructive bony lesions are identified. ABDOMEN AND PELVIS: Liver: The contrast-enhanced liver is enlarged, measuring 19.9 cm in length. The liver demonstrates diffusely diminished attenuation consistent with hepatic steatosis. Fatty sparing is noted adjacent to gallbladder fossa. There is no intrahepatic biliary ductal dilatation. The main portal veins appear patent. Gallbladder: Unremarkable. Spleen: Normal in size and attenuation noting heterogeneous arterial phase enhancement. Pancreas: Unremarkable. Adrenal glands: Unremarkable. Kidneys: The contrast enhanced kidneys are normal in size and without hydronephrosis. The kidneys enhance symmetrically. There is a 1.3 cm cyst seen on the right. Abdominal aorta and iliac arteries: The abdominal aorta is normal in course and caliber noting moderate to advanced atherosclerotic calcification. No aneurysm or dissection is seen. The iliac arteries are widely patent bilaterally. Major branches of the abdominal aorta: The celiac trunk, superior mesenteric, and inferior mesenteric arteries are widely patent. Hepatic arterial anatomy is conventional. The splenic artery is patent. The renal arteries are patent bilaterally. A small accessory renal artery is noted on the left. Stomach and bowel: A small hiatal hernia is noted. The duodenum is normal in configuration. There is moderate to advanced colonic diverticulosis without CT evidence of acute diverticulitis. No bowel obstruction is seen. The appendix is well-visualized and normal. Peritoneum: There is no intraperitoneal free air or abdominal ascites. There is a fat-containing umbilical hernia. Lymphadenopathy: None. Pelvic viscera: The bladder, prostate, and seminal vesicles are normal as imaged. Skeletal structures: No destructive bony lesions are seen. IMPRESSION: 1. There is no aneurysm or dissection seen involving the thoracic or abdominal aorta. 2. There is no airspace consolidation or pleural effusion. 3. Unremarkable CT angiogram of the major branches of the abdominal aorta. 4. There is nonspecific bilateral hilar adenopathy. 5. There are numerous (at least 10) subcentimeter pulmonary and pleural-based nodules as above. These measure up to 9 mm. Correlation with any prior chest CT scans is recommended to assess for stability. If no prior studies are available these nodules can be followed as per the Fleischner criteria detailed below. 6. Hepatomegaly and hepatic steatosis. 7. Moderate to advanced colonic diverticulosis without CT evidence of acute diverticulitis. 8. Additional findings as above. Please refer to below summary of Fleischner criteria recommendations for follow- up of incidental CT nodules (Rosmery Wht[place], Guidelines for management of small pulmonary nodules detected on CT scans: A statement from the Fleischner Society, Radiology 237: [phone].) SOLID NODULES Solitary nodule size: <6 mm * low risk patients: no follow-up needed * high risk patients: optional CT at 12 months Solitary nodule size: 6-8 mm * low risk patients: follow-up at 6-12 months, then consider further follow-up at 18-24 months * high risk patients: initial follow-up CT at 6-12 months and then at 18-24 months if no change Solitary nodule size: >8 mm * either low or high risk patients - consider follow-up CT at 3 months, and/or CT-PET, and/or biopsy Multiple nodules size: <6 mm * low risk patients: no routine follow-up * high risk patients: optional CT at 12 months Multiple nodules size: 6-8 mm * low risk patients: follow-up at 3-6 months, then consider further follow-up at 18-24 months * high risk patients: follow-up at 3-6 months, then at 18-24 months if no change Multiple nodules size: >8 mm * low risk patients: follow-up at 3-6 months, then consider further follow-up at 18-24 months * high risk patients: follow-up at 3-6 months, then at 18-24 months if no change Note: newly detected indeterminate nodule in persons 35 years of age or older. * low risk patients: minimal or absent history of smoking and/or other known risk factors * high risk patients: history of smoking or of other known risk factors (e.g. first degree relative with lung cancer, or exposure to asbestos, radon, uranium) * if a nodule up to 8 mm is partly solid or is ground glass further follow-up is required after 24 months to exclude possible slow growing adenocarcinoma (JIE) SUBSOLID NODULES Solitary pure ground-glass nodule * nodule size <6 mm - no CT follow-up required * nodule size >=6 mm - follow-up CT at 6-12 months, then every 2 years until 5 years Solitary part-solid nodule * nodule size <6 mm - no CT follow-up required * nodule size >=6 mm - follow-up CT at 3-6 months. If unchanged, and solid component remains <6 mm, then annual follow-up for 5 years Multiple subsolid nodules * nodule size <6 mm - follow-up CT at 3-6 months, consider further follow-up at 2 and 4 years if stable * nodule size >=6 mm - follow-up CT at 3-6 months, subsequent management based on the most suspicious nodule(s) ACT 112: Negative or not required by law. Electronically signed by: Edson Caba M.D. 05/16/2019 7:32 AM 05/16/19 01:53 CT head/brain wo con Urgent Brain parenchyma: The brain parenchyma is normal in appearance. There is no hemorrhage, mass effect, or evidence of acute territorial ischemia by CT criteria. Agosto-white matter differentiation is preserved. No extra-axial fluid collection is seen. Ventricles, sulci, cisterns: Normal in configuration. Intracranial vasculature: There is atherosclerotic calcification of the cavernous carotid and vertebral arteries. Calvarium: Unremarkable. Sinuses and mastoids: The visualized paranasal sinuses are clear. The mastoid air cells are well pneumatized. Orbits: The bony orbits are grossly intact. IMPRESSION: No acute intracranial abnormality. 05/16/19 10:57 CL Cath Imgs for PACS use only Routine Hospital Course (1) Chest pain: CHEST PAIN, ACUTE CORONARY SYNDROME RULED OUT hx CAD status post CABG status post stent Troponins negative The patient has an occluded right coronary artery in the proximal and mid segment where previous coronary stent was placed. The saphenous vein graft to the right coronary artery is occluded. The [place] LAD is occluded at its origin. The [place] left circumflex artery is patent. There is a sequential vein graft from the diagonal from the LAD across to the mid LAD which is patent. There is also an JOSE graft from the left to the LAD which is patent. LV function is relatively preserved with hypokinesis of the inferior and inferior basilar myocardium. Per cardiology service recommendations: We will proceed with medical therapy for his coronary artery disease and at this time would recommend PRN sublingual nitroglycerin. Continue usual cardiac medications Patient establish with [facility] cardiology clinic at [place] location, clinic to call patient SYNCOPE In the setting of alcohol intoxication We will need outpatient threat monitoring analyst, to be set up by [facility] cardiology clinic in 1 week No driving, not advised to work until cardiology follow-up in [address] CHEST AND ABDOMEN FINDINGS (Please refer to full report in the procedure/orders section above) Impression: 1. There is no aneurysm or dissection seen involving the thoracic or abdominal aorta. 2. There is no airspace consolidation or pleural effusion. 3. Unremarkable CT angiogram of the major branches of the abdominal aorta. 4. There is nonspecific bilateral hilar adenopathy. 5. There are numerous (at least 10) subcentimeter pulmonary and pleural-based nodules as above. These measure up to 9 mm. Correlation with any prior chest CT scans is recommended to assess for stability. If no prior studies are available these nodules can be followed as per the Fleischner criteria detailed below. 6. Hepatomegaly and hepatic steatosis. 7. Moderate to advanced colonic diverticulosis without CT evidence of acute diverticulitis. 8. Additional findings as above. --Further management and follow-up as outpatient Hyperlipidemia on statin Rx, recent lipid profile drawn outpatient (serum cholesterol 187, triglycerides 407, HDL 23, LDL 99) Continue statin, continue follow-up as an outpatient DM 2 on oral medications, suboptimal control as of recent outpatient hemoglobin A1c of 9.7 April, In light of IV contrast during cardiac catheterization, resume metformin May 19, 2019 Further management and close follow-up with outpatient PCP Hypokalemia secondary to home diuretic Rx Potassium 3.1 on admission, replaced Potassium 20 milliequivalents p.o. daily ordered Repeat basic metabolic profile on follow-up with PCP in 1 week Disposition Discharge to home Follow-up with PCP in 1 week Establish with [facility] cardiology clinic at [facility] in 1 week, will need threat monitoring analyst placement Total Time Total Time Spent Total Time Spent (In Minutes): 50 minutes Discharge Plan Discharge Items Patient Disposition: Home - Self-Care Reason For Visit: CHEST PAIN, HYPOCALCEMIA Discharge Diagnosis: Chest pain Activity: Resume your previous activity Activity Comment: Resume activity gradually as tolerated, no heavy exertion Lifting: Wait until after follow-up appointment Exercise/Sports: Wait until after follow-up appointment Driving/Machine Use: No driving until reevaluated and allowed by customs patrol officer Non-emergency contact: Primary Care Provider Call non-emergency contact if: you have any medication questions, you have a fever, your wound has increased redness, your wound has increased drainage and your wound pain has increased Follow-up/Referrals: Max Zaidi DO [Sanitation Director] - Roman Hooker MD [Primary Care Provider] - 05/20/19 1:05 pm Diet: Carb Consistent or DM2 and Heart Healthy Addtl Attending Provider Instructions: Instructions for Nitrostat tablet: take 1 tablet under the tongue as needed for chest pain; if chest pain does not resolve in 3-5 minutes, call 911 immediately Start taking potassium supplement tomorrow as prescribed. Do not take metformin today and tomorrow. Resume taking your metformin on May 19, 2019, . Do not take lisinopril with HCTZ today. Resume taking this medicine tomorrow May 18, 2019. Drink plenty of fluids. Do not take NSAID medication such as ibuprofen, naproxen, etc. Follow-up with primary care physician in 1 week as outlined above. Follow-up with [facility] cardiology clinic at [facility] in 1 week. You need to have a heart monitor device placed. Please call their office for an appointment. Cardiology clinic contact information outlined above. No smoking, no alcohol use. . Who to Call and When: Medical Emergencies: If at any time you feel your situation is an emergency, please call 911 immediately. Call 911 immediately or go to your nearest Emergency Room if you experience any of the following: Warning Signs and Symptoms of a Heart Attack * Chest pain that is not relieved by medication * Shortness of breath Recurrence of passing out Pending Studies at Discharge: Yes Studies:: Heart monitor device placement by cardiology clinic in 1 week; Blood work work: Basic metabolic profile during follow-up with primary care physician in 1 week Stand-Alone Forms: My Panl, Smoking Cessation Medications and DC Order Prescriptions: New nitroglycerin [Nitrostat] 0.3 mg tablet, sublingual 0.3 mg sublingual UD Qty: 20 RF: 1 potassium chloride [Klor-Con 10] 10 mEq tablet extended release 20 meq PO DAILY 14 Days Qty: 28 RF: 0 Continued metformin 500 mg Tablet 500 mg PO BID RF: 0 aspirin [Aspir-81] 81 mg Tablet,Delayed Release (Dr/Ec) 81 mg PO QAM RF: 0 simvastatin 40 mg Tablet 40 mg PO QAM RF: 0 metoprolol tartrate [Lopressor] 50 mg Tablet 75 mg PO BID RF: 0 lisinopril-hydrochlorothiazide 20-25 mg Tablet 1 tab PO QAM RF: 0 Discharge Orders: Discharge Order (Routine); Ordered 05/17/19 Ordered By: Len Lehman/Other Patient Handouts: Diabetes Mcc Complications, Diabetes Healthy Meals, Diabetes Exercise Benefits, Diabetes Living Life, Cath Cardiac Dc, Diabetes Manage A1C Test Admission Data Admit Date/Time: 05/16/19 02:36 Attending Provider: Len Herring Admit Provider: Paul Sullivan Primary Care Provider: Roman Hooker Other Providers: Paul Sullivan ; Glen Carrera ; Max Zaidi
== END 2019-05-17 13:34 | disposition home or self-care (01) | DRG 287 ==
LOC: ED 19:57 → 2E 05-16 02:36